=== PATIENT | male | born 1965 | race Hispanic/Latino ===

== ENCOUNTER 2018-06-26 21:34 | Emergency (ER) | payer OTHER ==
[2018-06-26] MEDS ORDERED: NACL 0.9% 1000 ML 2,000 ML IV ONE (21:44)
[2018-06-26] MEDS ORDERED: ATIVAN IM PRN (21:44)
[2018-06-26 22:39] LABS: Hematocrit 40.9 % (35.5-45.6); Hemoglobin 14.2 gm/dl (11.8-15.2); Mean Corpuscular HGB Conc 35 % (32-34); Mean Corpuscular Volume 99 fl (84-94); Platelet Count 183 K/mm3 (140-440); Red Blood Count 4.15 M/mm3 (3.65-5.03); Red Cell Distribution Width 13.8 % (13.2-15.2)
[2018-06-26 23:03] LABS: Alanine Aminotransferase 25 units/L (7-56); Albumin 4.4 g/dL (3.9-5); BUN/Creatinine Ratio 11; Blood Urea Nitrogen 9 mg/dL (9-20); Calcium 8.8 mg/dL (8.4-10.2); Hemolysis Index 9
[2018-06-26] MEDS ORDERED: MAGNESIUM SULFATE 2GM/50ML 2 GM/50 ML BAG IV ONE (23:14)
--- NOTE | 2018-06-26 23:33 | Cat Scan Report ---
FINAL REPORT PROCEDURE: CT HEAD/BRAIN WO CON TECHNIQUE: Computerized tomography of the head was performed without contrast material. HISTORY: ams etoh cocaine od COMPARISON: No prior studies are available for comparison. FINDINGS: Skull and scalp: Normal. Paranasal sinuses: There is fluid in the right maxillary sinus.. Ventricles and subarachnoid spaces: There is mild central and cortical atrophy. There is no hydroceph alus or asymmetry.. Cerebrum: No evidence of hemorrhage, acute infarction or mass . Cerebellum and brainstem: No evidence of hemorrhage, acute infarction or mass. Vasculature: Normal. Comments: None. IMPRESSION: There is no acute intracranial abnormality.
--- NOTE | 2018-06-26 23:45 | Emergency Department Report ---
ED General Adult HPI - General Chief complaint: Overdose Stated complaint: OVERDOSE COCAINE Time Seen by Provider: 06/26/18 21:39 Source: patient, EMS (EMS documentation as reviewed), RN notes reviewed Mode of arrival: Stretcher Limitations: Other (intoxication) - History of Present Illness Initial comments: This is a 52-year-old gentleman who was brought to the hospital by EMS for intoxication. The patient apparently reported no past medical history with the exception of penicillin allergy, and contacted 911 after using cocaine for the first time. The patient also consumed alcohol. The patient indicates that he was recreationally consuming these substances. The patient felt like his heart was racing, and felt uncomfortable with his polysubstance intoxication. The patient is concerned about his well-being. The patient is too intoxicated and anxious at this point time to describe exacerbating or relieving factors, radiation, or qualitative nature of his symptoms. There is no indication of trauma on his external physical exam, or from the EMS documentation. After a brief period of observation in the emergency room, patient felt improved, and was noted to be speaking to local police officers about his cocaine ingestion. -: This evening Severity scale (0 -10): 0 Quality: other Consistency: other Improves with: other Worsens with: other Associated Symptoms: weakness - Related Data Allergies Allergy/AdvReac Type Severity Reaction Status Date / Time No Known Allergies Allergy Unverified 06/26/18 22:53 ED Review of Systems ROS: Stated complaint: OVERDOSE COCAINE Other details as noted in HPI Comment: Unobtainable due to pts medical conditions Constitutional: malaise Cardiovascular: palpitations Gastrointestinal: denies: vomiting Neurological: weakness Psychiatric: anxiety. denies: homicidal thoughts, suicidal thoughts ED Past Medical Hx - Past Medical History Previous Medical History?: No - Surgical History Past Surgical History?: No - Social History Smoking Status: Current Every Day Smoker Substance Use Type: Cocaine ED Physical Exam - General Limitations: Other (intoxication) General appearance: alert, appears intoxicated, anxious, in distress - Head Head exam: Present: atraumatic, normocephalic - Eye Eye exam: Present: normal appearance, PERRL (pupils dilated), EOMI - ENT ENT exam: Present: normal exam, normal orophraynx, mucous membranes moist, normal external ear exam - Neck Neck exam: Present: normal inspection, full ROM. Absent: tenderness, meningismus - Respiratory Respiratory exam: Present: normal lung sounds bilaterally. Absent: respiratory distress - Cardiovascular Cardiovascular Exam: Present: normal rhythm, tachycardia, normal heart sounds. Absent: systolic murmur, diastolic murmur, rubs, gallop - GI/Abdominal GI/Abdominal exam: Present: soft. Absent: distended, tenderness, guarding, rebound, rigid, pulsatile mass - Rectal Rectal exam: Present: deferred - Extremities Exam Extremities exam: Present: normal inspection, full ROM, other (2+ pulses noted in the bilateral upper, lower extremities. Compartments soft. No long bony tenderness. The pelvis is stable.). Absent: pedal edema, joint swelling, calf tenderness - Back Exam Back exam: Present: normal inspection, full ROM. Absent: tenderness, CVA tenderness (R), paraspinal tenderness, vertebral tenderness - Neurological Exam Neurological exam: Present: alert (alert to name. Follows commands.), other (Extraocular movements intact. Tongue midline. No facial droop. Facial sensation intact to light touch in the V1, V2, V3 distribution bilaterally. 5 and 5 strength in 4 extremities.. Sensation is intact to light touch in 4 extremities.). Absent: motor sensory deficit - Psychiatric Psychiatric exam: Present: agitated, anxious - Skin Skin exam: Present: warm, dry, intact, normal color. Absent: rash ED Course Vital Signs 06/26/18 06/26/18 06/26/18 21:42 21:44 21:45 Temperature 97.8 F Pulse Rate 108 H Respiratory 20 Rate Blood Pressure 130/95 130/95 O2 Sat by Pulse 100 99 Oximetry 06/26/18 06/26/18 06/26/18 21:49 22:00 22:22 Temperature Pulse Rate 108 H 102 H Respiratory 20 20 18 Rate Blood Pressure 133/88 130/95 O2 Sat by Pulse 99 98 98 Oximetry 06/26/18 06/26/18 06/26/18 22:30 22:45 22:54 Temperature Pulse Rate 97 H 98 H 108 H Respiratory 22 22 24 Rate Blood Pressure 133/88 131/89 133/88 O2 Sat by Pulse 98 99 99 Oximetry 06/26/18 06/26/18 06/26/18 23:00 23:15 23:30 Temperature Pulse Rate 101 H 105 H 105 H Respiratory 21 20 15 Rate Blood Pressure 132/93 132/91 131/92 O2 Sat by Pulse 100 99 97 Oximetry 06/26/18 06/27/18 06/27/18 23:45 00:00 00:15 Temperature Pulse Rate 98 H Respiratory 16 Rate Blood Pressure 121/90 127/87 116/75 O2 Sat by Pulse 98 97 Oximetry 06/27/18 06/27/18 06/27/18 00:30 00:45 01:16 Temperature Pulse Rate Respiratory Rate Blood Pressure 115/77 113/73 113/73 O2 Sat by Pulse 98 Oximetry 06/27/18 01:31 Temperature Pulse Rate Respiratory Rate Blood Pressure 134/93 O2 Sat by Pulse Oximetry - Reevaluation(s) Reevaluation #1: 06/26/18 23:43 Differential diagnosis, including but not limited to: Cocaine intoxication, alcohol intoxication, dehydration Assessment and plan: 52-year-old gentleman, with no documented trauma, no physical evidence of trauma, with no indication of homicidality or suicidality, after presumed recreational ingestion of cocaine and alcohol. Physical exam significant for tachycardia, and pressured speech. The patient does not meet 1013 criteria. He is placed on 12/29/2012 for intoxication. IV fluids, as needed Ativan ordered. We will await clinical sobriety and then discharge the patient once sober. Reevaluation #2: 06/26/18 23:45 Patient found to be hypomagnesemic, we will replete his magnesium. Reevaluation #3: 06/27/18 05:28 The patient has been observed in the emergency room for approximately 8 hours. The patient's 1013 will be discontinued. The patient is clinically sober at this time. The patient is alert and oriented 3, exhibits decision-making capacity, and walks with a steady gait. The patient is counseled to refrain from cocaine and alcohol consumption in the future. ED Medical Decision Making - Lab Data Result diagrams: 06/26/18 22:01 06/26/18 22:01 Vital Signs 06/26/18 06/26/18 06/26/18 21:42 21:44 21:45 Temperature 97.8 F Pulse Rate 108 H Respiratory 20 Rate Blood Pressure 130/95 130/95 O2 Sat by Pulse 100 99 Oximetry 06/26/18 06/26/18 06/26/18 21:49 22:00 22:22 Temperature Pulse Rate 108 H 102 H Respiratory 20 20 18 Rate Blood Pressure 133/88 130/95 O2 Sat by Pulse 99 98 98 Oximetry 06/26/18 06/26/18 22:30 22:45 Temperature Pulse Rate 97 H 98 H Respiratory 22 22 Rate Blood Pressure 133/88 131/89 O2 Sat by Pulse 98 99 Oximetry Lab Results 06/26/18 06/26/18 06/26/18 Range/Units 22:01 22:01 22:01 WBC 6.1 (4.5-11.0) K/mm3 RBC 4.15 (3.65-5.03) M/mm3 Hgb 14.2 (11.8-15.2) gm/dl Hct 40.9 (35.5-45.6) % MCV 99 H (84-94) fl MCH 34 H (28-32) pg MCHC 35 H (32-34) % RDW 13.8 (13.2-15.2) % Plt Count 183 (140-440) K/mm3 Sodium 143 (137-145) mmol/L Potassium 4.0 (3.6-5.0) mmol/L Chloride 103.9 (98-107) mmol/L Carbon Dioxide 25 (22-30) mmol/L Anion Gap 18 mmol/L BUN 9 (9-20) mg/dL Creatinine 0.8 (0.8-1.5) mg/dL Estimated GFR > 60 ml/min BUN/Creatinine Ratio 11 % Glucose 91 (75-100) mg/dL Calcium 8.8 (8.4-10.2) mg/dL Magnesium 1.60 L (1.7-2.3) mg/dL Total Bilirubin 0.30 (0.1-1.2) mg/dL AST 62 H (5-40) units/L ALT 25 (7-56) units/L Alkaline Phosphatase 111 (35-129) units/L Total Creatine Kinase 115 (55-170) units/L Total Protein 7.3 (6.3-8.2) g/dL Albumin 4.4 (3.9-5) g/dL Albumin/Globulin Ratio 1.5 % Salicylates < 0.3 L (2.8-20.0) mg/dL Acetaminophen (10.0-30.0) ug/mL Plasma/Serum Alcohol (0-0.07) % 06/26/18 06/26/18 Range/Units 22:01 22:01 WBC (4.5-11.0) K/mm3 RBC (3.65-5.03) M/mm3 Hgb (11.8-15.2) gm/dl Hct (35.5-45.6) % MCV (84-94) fl MCH (28-32) pg MCHC (32-34) % RDW (13.2-15.2) % Plt Count (140-440) K/mm3 Sodium (137-145) mmol/L Potassium (3.6-5.0) mmol/L Chloride (98-107) mmol/L Carbon Dioxide (22-30) mmol/L Anion Gap mmol/L BUN (9-20) mg/dL Creatinine (0.8-1.5) mg/dL Estimated GFR ml/min BUN/Creatinine Ratio % Glucose (75-100) mg/dL Calcium (8.4-10.2) mg/dL Magnesium (1.7-2.3) mg/dL Total Bilirubin (0.1-1.2) mg/dL AST (5-40) units/L ALT (7-56) units/L Alkaline Phosphatase (35-129) units/L Total Creatine Kinase (55-170) units/L Total Protein (6.3-8.2) g/dL Albumin (3.9-5) g/dL Albumin/Globulin Ratio % Salicylates (2.8-20.0) mg/dL Acetaminophen < 5.0 L (10.0-30.0) ug/mL Plasma/Serum Alcohol 0.30 H (0-0.07) % - EKG Data -: EKG Interpreted by [facility] EKG shows normal: sinus rhythm Rate: normal - EKG Data When compared to previous EKG there are: previous EKG unavailable 06/26/18 23:44 Sinus, 94 bpm, left axis deviation, left anterior fascicular block, left v entricular hypertrophy, QTC prolonged, abnormal EKG, not consistent with ST elevation myocardial infarction. There is no EKG available for comparison at this time. - Radiology Data Radiology results: report reviewed, image reviewed Noncontrast CT scan of the brain is negative for acute disease Critical care attestation.: If time is entered above; I have spent that time in minutes in the direct care of this critically ill patient, excluding procedure time. ED Disposition Clinical Impression: Alcohol intoxication, History of cocaine use Disposition: DC-01 TO HOME OR SELFCARE Is pt being admited?: No Does the pt Need Aspirin: No Condition: Good Instructions: Cocaine Abuse (ED), Abuse of Alcohol (ED) Additional Instructions: Please refrain from using cocaine in the future. Complications from cocaine use include heart attack, stroke, disability, paralysis, loss of quality of life. Please make certain to decrease or minimize alcohol consumption in the future. Long-term complications of alcohol consumption include disability, liver failure, addiction, loss of quality of life. Follow-up with the primary care doctor within the next 3-4 weeks. Return to the emergency room right away with new, worsened or different symptoms. Referrals: [facility] [Other] - 3-5 Days [facility] [Provider Group] - 3-5 Days
[2018-06-27 05:29] VITALS: BP 127/86
== END 2018-06-27 06:28 | disposition home or self-care (01) ==
LOC: ED 21:34
DX: F14.120 Cocaine abuse with intoxication, uncomplicated (principal); F41.9 Anxiety disorder, unspecified; F17.200 Nicotine dependence, unspecified, uncomplicated
CPT/HCPCS: 36415; 70450; 80053; 82550; 83735; 85027; 93005; 93010; 96365; 96372; 99284; G0480; J2060; J3475; J7030; 80320

== ENCOUNTER 2018-07-03 20:37 | Inpatient (IN) | payer SELFPAY ==
[2018-07-03] MEDS ORDERED: NITRO-BID 2% TP ONE (21:13)
[2018-07-03] MEDS ORDERED: ASPIRIN PO ONE (21:13)
--- NOTE | 2018-07-03 21:15 | Emergency Department Report ---
HPI - General Chief Complaint: Psych Time Seen by Provider: 07/03/18 20:48 - HPI HPI: Room 7 The patient is a 52-year-old male presenting with chief complaint of palpitations and chest pain. The patient states this evening he was talking to someone and he met at a bar when they decided to go outside and smoke. The patient states he thought they were smoking marijuana but he believes his cigarette head marijuana mixed with another substance possibly methamphetamine or cocaine. The patient states after smoking immediately felt his heart rate increased dramatically associated with chest pain and shortness of breath. Patient states he went to the bathroom and eventually the heart rate had normalized. The patient states he felt okay going to get some food from [employer] when again his heart rate increased dramatically. The patient states this resolved when the heart rate increased to third time he called EMS. Patient states he currently has chest pain and gives it a score of 6/10. Patient admits to diaphoresis but denies nausea/vomiting. Patient states he's had multiple stress tests but has never had a cardiac catheterization Location: Chest Duration: [See above] Quality: Pain, palpitations Severity: 6/10 Modifying factors: [see above] Context: [see above] Mode of transportation: [not driving] ED Past Medical Hx - Past Medical History Previous Medical History?: No Hx COPD: Yes (no home O2) - Surgical History Past Surgical History?: Yes Additional Surgical History: back surgery - Family History Family history: no significant - Social History Smoking Status: Current Every Day Smoker (1 pack per day) Substance Use Type: Alcohol (moderate), Marijuana ED Review of Systems ROS: Stated complaint: ACCELERATED HEART RATE Other details as noted in HPI Constitutional: diaphoresis Eyes: denies: eye pain ENT: denies: throat pain Respiratory: shortness of breath Cardiovascular: chest pain, palpitations Endocrine: no symptoms reported Gastrointestinal: denies: nausea, vomiting Genitourinary: denies: dysuria Musculoskeletal: denies: back pain Neurological: denies: headache Physical Exam - Physical Exam Physical Exam: GENERAL: The patient is well-developed well-nourished male lying on stretcher not appearing to be in acute distress. [] HEENT: Normocephalic. Atraumatic. Extraocular motions are intact. Patient has moist mucous membranes. NECK: Supple. Trachea midline CHEST/LUNGS: Clear to auscultation. There is no respiratory distress noted. HEART/CARDIOVASCULAR: Regular. There is no tachycardia. There is no gallop rub or murmur. ABDOMEN: Abdomen is soft, nontender. Patient has normal bowel sounds. There is no abdominal distention. SKIN: There is no rash. There is no edema. There is no diaphoresis. NEURO: The patient is awake, alert, and oriented. The patient is cooperative. The patient has normal speech MUSCULOSKELETAL: There is no evidence of acute injury. ED Medical Decision Making - Lab Data Result diagrams: 07/03/18 21:15 07/03/18 21:15 Laboratory Tests 07/03/18 07/03/18 07/03/18 21:15 21:15 21:15 WBC 5.7 RBC 3.61 L Hgb 12.4 Hct 35.3 L MCV 98 H MCH 34 H MCHC 35 H RDW 13.7 Plt Count 149 Lymph % (Auto) 45.2 H [place] % (Auto) 8.3 H Eos % (Auto) 1.5 Baso % (Auto) 1.2 Lymph # 2.6 [place] # 0.5 Eos # 0.1 Baso # 0.1 Seg Neutrophils % 43.8 Seg Neutrophils # 2.5 PT 12.7 INR 0.90 APTT 27.8 Sodium 146 H Potassium 4.2 Chloride 104.6 Carbon Dioxide 24 Anion Gap 22 BUN 9 Creatinine 0.7 L Estimated GFR > 60 BUN/Creatinine Ratio 13 Glucose 94 Calcium 8.4 Magnesium Total Bilirubin 0.30 AST 54 H ALT 25 Alkaline Phosphatase 104 Total Creatine Kinase 241 H CK-MB (CK-2) 2.7 CK-MB (CK-2) Rel Index 1.1 Troponin T NT-Pro-B Natriuret Pep Total Protein 6.3 Albumin 4.2 Albumin/Globulin Ratio 2.0 07/03/18 07/03/18 21:15 21:15 WBC RBC Hgb Hct MCV MCH MCHC RDW Plt Count Lymph % (Auto) [place] % (Auto) Eos % (Auto) Baso % (Auto) Lymph # [place] # Eos # Baso # Seg Neutrophils % Seg Neutrophils # PT INR APTT Sodium Potassium Chloride Carbon Dioxide Anion Gap BUN Creatinine Estimated GFR BUN/Creatinine Ratio Glucose Calcium Magnesium 1.80 Total Bilirubin AST ALT Alkaline Phosphatase Total Creatine Kinase CK-MB (CK-2) CK-MB (CK-2) Rel Index Troponin T < 0.010 NT-Pro-B Natriuret Pep 675.2 Total Protein Albumin Albumin/Globulin Ratio Laboratory Tests 07/03/18 07/03/18 07/03/18 21:15 21:15 21:15 WBC 5.7 RBC 3.61 L Hgb 12.4 Hct 35.3 L MCV 98 H MCH 34 H MCHC 35 H RDW 13.7 Plt Count 149 Lymph % (Auto) 45.2 H [place] % (Auto) 8.3 H Eos % (Auto) 1.5 Baso % (Auto) 1.2 Lymph # 2.6 [place] # 0.5 Eos # 0.1 Baso # 0.1 Seg Neutrophils % 43.8 Seg Neutrophils # 2.5 PT 12.7 INR 0.90 APTT 27.8 Sodium 146 H Potassium 4.2 Chloride 104.6 Carbon Dioxide 24 Anion Gap 22 BUN 9 Creatinine 0.7 L Estimated GFR > 60 BUN/Creatinine Ratio 13 Glucose 94 Calcium 8.4 Magnesium Total Bilirubin 0.30 AST 54 H ALT 25 Alkaline Phosphatase 104 Total Creatine Kinase 241 H CK-MB (CK-2) 2.7 CK-MB (CK-2) Rel Index 1.1 Troponin T NT-Pro-B Natriuret Pep Total Protein 6.3 Albumin 4.2 Albumin/Globulin Ratio 2.0 TSH Free T4 Plasma/Serum Alcohol 07/03/18 07/03/18 07/03/18 21:15 21:15 21:15 WBC RBC Hgb Hct MCV MCH MCHC RDW Plt Count Lymph % (Auto) [place] % (Auto) Eos % (Auto) Baso % (Auto) Lymph # [place] # Eos # Baso # Seg Neutrophils % Seg Neutrophils # PT INR APTT Sodium Potassium Chloride Carbon Dioxide Anion Gap BUN Creatinine Estimated GFR BUN/Creatinine Ratio Glucose Calcium Magnesium 1.80 Total Bilirubin AST ALT Alkaline Phosphatase Total Creatine Kinase CK-MB (CK-2) CK-MB (CK-2) Rel Index Troponin T < 0.010 NT-Pro-B Natriuret Pep 675.2 Total Protein Albumin Albumin/Globulin Ratio TSH 0.865 Free T4 0.94 Plasma/Serum Alcohol 07/03/18 21:15 WBC RBC Hgb Hct MCV MCH MCHC RDW Plt Count Lymph % (Auto) [place] % (Auto) Eos % (Auto) Baso % (Auto) Lymph # [place] # Eos # Baso # Seg Neutrophils % Seg Neutrophils # PT INR APTT Sodium Potassium Chloride Carbon Dioxide Anion Gap BUN Creatinine Estimated GFR BUN/Creatinine Ratio Glucose Calcium Magnesium Total Bilirubin AST ALT Alkaline Phosphatase Total Creatine Kinase CK-MB (CK-2) CK-MB (CK-2) Rel Index Troponin T NT-Pro-B Natriuret Pep Total Protein Albumin Albumin/Globulin Ratio TSH Free T4 Plasma/Serum Alcohol 0.34 H - EKG Data -: EKG Interpreted by Me EKG shows normal: sinus rhythm Rate: normal - EKG Data When compared to previous EKG there are: changes noted Interpretation: nonspecific ST-T wave aaron (new T-wave inversions in leads and leads V5, V6 when compared to previous EKG dated 06/26/2018) - Radiology Data Radiology results: image reviewed (chest x-ray) interpreted by me: Chest x-ray-no focal infiltrates, no pneumothorax - Differential Diagnosis ACS, stimulant ingestion, pericarditis, GERD Critical care attestation.: If time is entered above; I have spent that time in minutes in the direct care of this critically ill patient, excluding procedure time. ED Disposition Clinical Impression: History of cocaine use, Alcohol intoxication, Chest pain, T wave inversion in EKG Disposition: DC-09 OP ADMIT IP TO THIS HOSP Is pt being admited?: Yes Does the pt Need Aspirin: Yes Condition: Fair Instructions: Chest Pain (ED) Referrals: SARITA HENDERSON MD [Primary Care Provider] - 3-5 Days Time of Disposition: 22:22 (hospitalist paged (Dr Parrish))
[2018-07-03 21:28] LABS: Basophils # (Auto) 0.1 K/mm3 (0.0-0.1); Basophils % (Auto) 1.2 % (0.0-1.8); Eosinophils # (Auto) 0.1 K/mm3 (0.0-0.4); Eosinophils % (Auto) 1.5 % (0.0-4.3); Hematocrit 35.3 % (35.5-45.6); Hemoglobin 12.4 gm/dl (11.8-15.2); Lymphocytes # (Auto) 2.6 K/mm3 (1.2-5.4); Lymphocytes % (Auto) 45.2 % (13.4-35.0); Mean Corpuscular HGB Conc 35 % (32-34); Mean Corpuscular Volume 98 fl (84-94); Monocytes # (Auto) 0.5 K/mm3 (0.0-0.8); Monocytes % (Auto) 8.3 % (0.0-7.3); Platelet Count 149 K/mm3 (140-440); Red Blood Count 3.61 M/mm3 (3.65-5.03); Red Cell Distribution Width 13.7 % (13.2-15.2)
[2018-07-03 21:39] LABS: INR 0.9 (0.87-1.13)
[2018-07-03 21:40] LABS: Partial Thromboplastin Time 27.8 Sec. (24.2-36.6)
[2018-07-03 22:14] LABS: Creatine Kinase MB 2.7 ng/mL (0.0-4.0)
[2018-07-03 22:16] LABS: Alanine Aminotransferase 25 units/L (7-56); Albumin 4.2 g/dL (3.9-5); BUN/Creatinine Ratio 13; Blood Urea Nitrogen 9 mg/dL (9-20); Calcium 8.4 mg/dL (8.4-10.2); Hemolysis Index 14
[2018-07-03 22:19] LABS: Free T4 (Free Thyroxine) 0.94 ng/dL (0.76-1.46)
[2018-07-03] MEDS ORDERED: FOLVITE 1 MG, INFUVITE 10 ML, MAGNESIUM SULFATE 2 GM in NACL 0.9% 1000 ML 1,000 ML IV ONE (22:23)
--- NOTE | 2018-07-03 22:33 | XRay Report ---
FINAL REPORT PROCEDURE: Chest. TECHNIQUE: Portable AP view. HISTORY: Chest pain. COMPARISON: No prior studies are available for comparison. FINDINGS: The heart and mediastinum appear normal. The lungs are clear and well expanded. There are no pleural effusions. The soft tissues and regional skeleton are unremarkable. IMPRESSION: Negative portable chest.
[2018-07-03 22:45] LABS: Amphetamine Screen,Urine PRESUMPTIVE NEGATIVE; Benzodiazepines Screen,Urine PRESUMPTIVE NEGATIVE; Cannabinoid Screen,Urine PRESUMPTIVE NEGATIVE; Cocaine Screen,Urine PRESUMPTIVE NEGATIVE; Methadone Screen,Urine PRESUMPTIVE NEGATIVE; Opiate Screen,Urine PRESUMPTIVE NEGATIVE
[2018-07-03] MEDS ORDERED: VITAMIN B-1 PO ONE (23:00)
[2018-07-03] MEDS ORDERED: NITROSTAT SL PRN (23:10)
[2018-07-03] MEDS ORDERED: TYLENOL PO PRN (23:11)
[2018-07-03] MEDS ORDERED: MORPHINE IV PRN (23:11)
[2018-07-03] MEDS ORDERED: ZOFRAN IV PRN (23:13)
[2018-07-03] MEDS ORDERED: ATIVAN IV PRN (23:13)
[2018-07-03] MEDS: NITRO-BID 2% TP SCH (23:27)
[2018-07-04] MEDS: NITRO-BID 2% TP SCH ×4 (06:12→17:12)
--- NOTE | 2018-07-04 06:53 | History and Physical Report ---
CHIEF COMPLAINT: Chest pain. HISTORY OF PRESENTING ILLNESS: The patient is a 52-year-old male who started complaining about chest pain and palpitation and said that he went to a bar this evening and decided to go outside and smoke with a lady. He was not sure what the lady gave him, but said that they were smoking marijuana and the patient said he suspected that his marijuana was mixed with another substance which he said that might possibly be methamphetamine or cocaine and said after that, he started feeling his heart beating fast and then he developed chest pain with shortness of breath and then eventually he went to the bathroom and the heart rate normalized and then he said that when he went to [employer] to get some food, his heart rate started beating fast again and resolved later on only to start beating fast again at that time he called EMS and he was brought to the Emergency Room. There is history of associated diaphoresis, but no nausea, no vomiting. PAST MEDICAL HISTORY: Pertinent for COPD. PAST SURGICAL HISTORY: Pertinent for back surgery. FAMILY HISTORY: Noncontributory. SOCIAL HISTORY: The patient smokes cigarettes and drinks alcohol, uses illicit drug. MEDICATIONS: The patient's home medications are not known at this time. ALLERGIES: There are no known drug allergies. REVIEW OF SYSTEMS: CONSTITUTIONAL: There is no fever, no chills. Diaphoresis is present. HEENT: There is no headache or sore throat. CARDIOVASCULAR SYSTEM: Chest pain is present, palpitations present. No orthopnea. RESPIRATORY SYSTEM: There is shortness of breath, but no cough. GASTROINTESTINAL SYSTEM: There is no nausea, no vomiting. No abdominal pain, diarrhea, or constipation. NEUROLOGICAL SYSTEM: There is no numbness, no dizziness, no altered mental status. MUSCULOSKELETAL SYSTEM: There is no joint pain or swelling. DERMATOLOGICAL SYSTEM: There is no skin rash or itching. GENITOURINARY SYSTEM: There is no dysuria, hematuria, or flank pain. Rest of system review is normal. PHYSICAL EXAMINATION: GENERAL: At the time of exam, the patient was found to be lethargic, but able to communicate and not in acute distress. VITAL SIGNS: Show temperature of 97.9 degrees Fahrenheit, pulse of 83, respirations 18, blood pressure 123/87, O2 sat of 100% on room air. HEENT: Shows pupils to be equal, round, reactive to light and accommodation. Extraocular muscles are intact. NECK: Supple with no JVD or carotid bruit. CARDIOVASCULAR SYSTEM: Shows normal first and second heart sounds with no gallops or murmurs. RESPIRATORY SYSTEM: Shows good air entry on both sides of the lung with no abnormal breath sounds. GASTROINTESTINAL SYSTEM: Shows abdomen to be full, soft, nontender with no organomegaly or rigidity. NEUROLOGICAL: Shows no focal deficit. MUSCULOSKELETAL SYSTEM: Shows no joint swelling or tenderness. DERMATOLOGICAL SYSTEM: Shows no skin rash. GENITOURINARY SYSTEM: Showing no costovertebral angle tenderness. PERTINENT LABORATORY AND IMAGING STUDIES: The patient had chest x-ray done that came back showing no acute cardiopulmonary lesion. The patient's lab results show CBC with normal white count, normal hemoglobin, and slightly low hematocrit of 35.3 with CBC differential showing elevated lymphocyte count of 45.2% with elevated monocyte count of 8.3%. Rest of CBC was unremarkable. Coagulation studies came back unremarkable. The patient's chemistry shows slightly elevated sodium level of 146 with rest of chemistry showing elevated AST of 54 with normal ALT consistent with alcohol consumption. The patient's cardiac enzymes only showed elevated total CPK of 241 with normal CK, MB, and normal CK-MB percentage index and normal troponin level. The patient's urine drug screen came back unremarkable. Alcohol level is high with a value of 0.34. DIAGNOSES: 1. Chest pain. 2. Alcohol abuse. PLAN OF CARE: 1. The patient will be admitted to telemetry. 2. The patient will have cardiac enzymes involving troponin, total CK and CK-MB checked serially every 6 hours x 2 more levels. 3. The patient will be n.p.o. for Lexiscan stress test this morning. 4. The patient will be on aspirin 325 mg by mouth daily and will be on Tylenol 650 mg by mouth every 4 hours for fever and headache. 5. The patient will be on IV lorazepam 1 mg every 4 hours for anxiety and agitation. 6. The patient will be on IV morphine 2 mg every 3 hours as needed for chest pain and will be on IV Zofran 4 mg every 8 hours for nausea and vomiting. 7. The patient will be on nitro paste one inch to anterior chest wall q.i.d. and will be also on sublingual nitroglycerin 0.4 mg every 5 minutes as needed for breakthrough chest pain. 8. The patient will be on IV banana bag made up of thiamine and folic acid, magnesium sulfate, and multivitamins, all mixed in 1 L of normal saline and run at 250 mL an hour and given 1 time daily. 9. The patient will be on oxygen by nasal cannula 2 L/min. JOB# [id number] OCN/NTS MTDD
[2018-07-04] MEDS ORDERED: LEXISCAN IV ONE (08:03)
[2018-07-04] MEDS: VITAMIN B-1 PO SCH (10:54)
[2018-07-04] MEDS: ASPIRIN PO SCH (10:54)
[2018-07-04] MEDS: HEPARIN SUB-Q SCH ×3 (11:00→21:07)
[2018-07-04 11:20] LABS: BUN/Creatinine Ratio 13; Blood Urea Nitrogen 8 mg/dL (9-20); Hemolysis Index 6
[2018-07-04] MEDS: LIBRIUM PO SCH ×2 (14:11→20:49)
[2018-07-04] MEDS: ZESTRIL PO SCH (14:12)
[2018-07-04] MEDS: COREG PO SCH ×3 (14:14→21:07)
--- NOTE | 2018-07-04 15:20 | Progress Note ---
Assessment and Plan Assessment and plan: Chest pain, rule out ACS -serial troponin levels negative -NST negative for acute ischemia with EF of 30% History of alcohol abuse with intoxication on admission -On counseling the patient, he refuses to stop drinking because according to him, he has been drinking since he was 16 years old -On alcohol withdrawal prophylaxis New cardiomyopathy likely alcoholic with EF of 30% -Patient started on beta ketan and ANDREINA inhibitor -Echocardiogram pending -Cardiology consulted COPD -No acute exacerbation -PRN magali Disposition: We'll await cardiology review before discharge planning History Interval history: Patient reports feeling tired after the stress test. He denies current chest pain. Hospitalist Physical - Constitutional Vitals: Temp Pulse Resp BP Pulse Ox 98.3 F 94 H 18 134/87 97 07/04/18 04:41 07/04/18 12:15 07/04/18 04:41 07/04/18 12:15 07/04/18 12:15 General appearance: Present: no acute distress - EENT Eyes: Present: PERRL, EOM intact ENT: hearing intact, clear oral mucosa - Neck Neck: Present: supple - Respiratory Respiratory effort: normal Respiratory: bilateral: CTA - Cardiovascular Rhythm: regular Heart Sounds: Present: S1 & S2 - Extremities Extremities: No edema - Abdominal General gastrointestinal: soft, non-tender, non-distended, normal bowel sounds - Neurologic Neurologic: CNII-XII intact Results - Labs CBC & Chem 7: 07/03/18 21:15 07/04/18 10:43 Labs: Laboratory Last Values WBC 5.7 K/mm3 (4.5-11.0) 07/03/18 21:15 RBC 3.61 M/mm3 (3.65-5.03) L 07/03/18 21:15 Hgb 12.4 gm/dl (11.8-15.2) 07/03/18 21:15 Hct 35.3 % (35.5-45.6) L 07/03/18 21:15 MCV 98 fl (84-94) H 07/03/18 21:15 MCH 34 pg (28-32) H 07/03/18 21:15 MCHC 35 % (32-34) H 07/03/18 21:15 RDW 13.7 % (13.2-15.2) 07/03/18 21:15 Plt Count 149 K/mm3 (140-440) 07/03/18 21:15 Lymph % (Auto) 45.2 % (13.4-35.0) H 07/03/18 21:15 [place] % (Auto) 8.3 % (0.0-7.3) H 07/03/18 21:15 Eos % (Auto) 1.5 % (0.0-4.3) 07/03/18 21:15 Baso % (Auto) 1.2 % (0.0-1.8) 07/03/18 21:15 Lymph # 2.6 K/mm3 (1.2-5.4) 07/03/18 21:15 [place] # 0.5 K/mm3 (0.0-0.8) 07/03/18 21:15 Eos # 0.1 K/mm3 (0.0-0.4) 07/03/18 21:15 Baso # 0.1 K/mm3 (0.0-0.1) 07/03/18 21:15 Seg Neutrophils % 43.8 % (40.0-70.0) 07/03/18 21:15 Seg Neutrophils # 2.5 K/mm3 (1.8-7.7) 07/03/18 21:15 PT 12.7 Sec. (12.2-14.9) 07/03/18 21:15 INR 0.90 (0.87-1.13) 07/03/18 21:15 APTT 27.8 Sec. (24.2-36.6) 07/03/18 21:15 Sodium 143 mmol/L (137-145) 07/04/18 10:43 Potassium 4.1 mmol/L (3.6-5.0) 07/04/18 10:43 Chloride 106.4 mmol/L (98-107) 07/04/18 10:43 Carbon Dioxide 20 mmol/L (22-30) L 07/04/18 10:43 Anion Gap 21 mmol/L 07/04/18 10:43 BUN 8 mg/dL (9-20) L 07/04/18 10:43 Creatinine 0.6 mg/dL (0.8-1.5) L 07/04/18 10:43 Estimated GFR > 60 ml/min 07/04/18 10:43 BUN/Creatinine Ratio 13 % 02/23/19 10:43 Glucose 133 mg/dL (75-100) H 07/04/18 10:43 Calcium 8.0 mg/dL (8.4-10.2) L 07/04/18 10:43 Magnesium 1.80 mg/dL (1.7-2.3) 07/03/18 21:15 Total Bilirubin 0.30 mg/dL (0.1-1.2) 07/03/18 21:15 AST 54 units/L (5-40) H 07/03/18 21:15 ALT 25 units/L (7-56) 07/03/18 21:15 Alkaline Phosphatase 104 units/L (35-129) 07/03/18 21:15 Total Creatine Kinase 179 units/L (55-170) H 07/04/18 10:43 CK-MB (CK-2) 2.0 ng/mL (0.0-4.0) 07/04/18 10:43 CK-MB (CK-2) Rel Index 1.1 (0-4) 07/04/18 10:43 Troponin T < 0.010 ng/mL (0.00-0.029) 07/04/18 10:43 NT-Pro-B Natriuret Pep 675.2 pg/mL (0-900) 07/03/18 21:15 Total Protein 6.3 g/dL (6.3-8.2) 07/03/18 21:15 Albumin 4.2 g/dL (3.9-5) 07/03/18 21:15 Albumin/Globulin Ratio 2.0 % 07/03/18 21:15 TSH 0.865 mlU/mL (0.270-4.200) 07/03/18 21:15 Free T4 0.94 ng/dL (0.76-1.46) 07/03/18 21:15 Urine Opiates Screen Presumptive negative 07/03/18 22:02 Urine Methadone Screen Presumptive negative 07/03/18 22:02 Ur Barbiturates Screen Presumptive negative 07/03/18 22:02 Ur Phencyclidine Scrn Presumptive negative 07/03/18 22:02 Ur Amphetamines Screen Presumptive negative 07/03/18 22:02 U Benzodiazepines Scrn Presumptive negative 07/03/18 22:02 Urine Cocaine Screen Presumptive negative 07/03/18 22:02 U Marijuana (THC) Screen Presumptive negative 07/03/18 22:02 Drugs of Abuse Note Disclamer 07/03/18 22:02 Plasma/Serum Alcohol 0.34 % (0-0.07) H 07/03/18 21:15
[2018-07-04] MEDS ORDERED: PROVENTIL IH PRN (15:23)
[2018-07-04] MEDS: FOLVITE 1 MG, INFUVITE 10 ML, MAGNESIUM SULFATE 2 GM in NACL 0.9% 1000 ML 1,000 ML IV SCH (22:02)
--- NOTE | 2018-07-04 22:08 | Treadmill Report ---
NUCLEAR PERFUSION SCAN ROOM: #458 REFERRING PHYSICIAN: Dr. Parrish. PROTOCOL: The patient was brought to the stress lab in a postabsorptive state, given 10 mCi of technetium 99m at rest. The patient underwent rest imaging. The patient underwent Lexiscan stress test per standard protocol. At peak stress, the patient was given 26 mCi of technetium 99m. Shortly thereafter, the patient underwent stress imaging. Raw imaging reveals mild GI artifact, no significant motion artifact. SPECT images examined carefully in horizontal long axis, vertical long axis, and short axis views. There is no evidence of significant fixed or reversible perfusion defect suggestive of prior infarction or active ischemia. However, the LV chamber size is at least mildly dilated with severe global left ventricular hypokinesis with a calculated ejection fraction of 31%. CONCLUSIONS: 1. Normal myocardial perfusion scan without evidence of significant degree of ischemia or prior infarction. 2. Severe global left ventricular hypokinesis with a calculated ejection fraction of 31%. Suggest clinical correlation, may want to correlate with echocardiography. Consider Cardiology consultation. JOB# [id number] SBAnila/DEDE
[2018-07-05] MEDS: NITRO-BID 2% TP SCH ×4 (06:07→17:02)
[2018-07-05] MEDS: ASPIRIN PO SCH (09:37)
[2018-07-05] MEDS: COREG PO SCH (09:37)
[2018-07-05] MEDS: THERAGRAN Tab PO SCH (09:37)
[2018-07-05] MEDS: ZESTRIL PO SCH (09:37)
[2018-07-05] MEDS: LIBRIUM PO SCH ×3 (09:37→22:44)
[2018-07-05] MEDS: VITAMIN B-1 PO SCH (09:38)
[2018-07-05] MEDS: HEPARIN SUB-Q SCH ×2 (09:38→22:44)
[2018-07-05] MEDS ORDERED: AFLURIA QUAD 2018-2019 SYRINGE IM ONE (12:00)
--- NOTE | 2018-07-05 12:18 | Consultation ---
History of Present Illness Consult date: 07/05/18 Medications and Allergies Allergies Allergy/AdvReac Type Severity Reaction Status Date / Time No Known Allergies Allergy Unverified 06/26/18 22:53 Home Medications Medication Instructions Recorded Confirmed Last Taken Type No Known Home Medications [No 07/03/18 07/03/18 Unknown History Reported Home Medications] Active Meds: Active Medications Acetaminophen (Tylenol) 650 mg PO Q4H PRN PRN Reason: Headache Albuterol (Proventil) 2.5 mg IH Q4HRT PRN PRN Reason: Shortness Of Breath Aspirin (Aspirin) 325 mg PO QDAY [facility] Last Admin: 07/05/18 09:37 Dose: 325 mg Documented by: Chlordiazepoxide HCl (Librium) 25 mg PO TID [facility] Last Admin: 07/05/18 09:37 Dose: 25 mg Documented by: Heparin Sodium (Porcine) (Heparin) 5,000 unit SUB-Q Q12HR [facility] Last Admin: 07/05/18 09:38 Dose: 5,000 unit Documented by: Folic Acid 1 mg/ Multivitamins /Minerals 10 ml/ Magnesium Sulfate 2 gm/ Sodium Chloride 1,014.2 mls @ 250 mls/hr IV QDAY@2200 [facility] Last Admin: 07/04/18 22:02 Dose: 250 mls/hr Documented by: Lorazepam (Ativan) 1 mg IV Q4H PRN PRN Reason: Anxiety Morphine Sulfate (Morphine) 2 mg IV Q3H PRN PRN Reason: Pain, Moderate (4-6) Multivitamins (Theragran Tab) 1 each PO QDAY [facility] Last Admin: 07/05/18 09:37 Dose: 1 each Documented by: Nitroglycerin (Nitrostat) 0.4 mg SL .Q5MIN PRN PRN Reason: Chest Pain Nitroglycerin (Nitro-Bid 2%) 1 inch TP QIDNTG [facility]; Protocol Last Admin: 07/05/18 09:38 Dose: Not Given Documented by: Ondansetron HCl (Zofran) 4 mg IV Q8H PRN PRN Reason: Nausea And Vomiting Thiamine HCl (Vitamin B-1) 100 mg PO QDAY [facility] Last Admin: 07/05/18 09:38 Dose: 100 mg Documented by: Physical Examination Vital Signs Pulse Ox 98 07/03/18 19:48 Results 07/03/18 21:15 07/04/18 10:43 Assessment and Plan full consult dictated
--- NOTE | 2018-07-05 13:50 | Progress Note ---
Assessment and Plan Assessment and plan: Chest pain, rule out ACS -serial troponin levels negative -NST negative for acute ischemia with EF of 31% -Echo reported EF of 15-20% with diastolic dysfunction. Patent foramen ovale and moderate MR noted History of alcohol abuse with intoxication on admission -stable on alcohol withdrawal prophylaxis -Pt declined to stop drinking despite education New cardiomyopathy(systolic and diastolic dysfunction), with EF of 15-30% -likely 2/2 alcohol abuse -Patient did not tolerate beta ketan and ANDREINA inhibitor -Cardiology planning for left cardiac catheterization in am COPD -No acute exacerbation -DASH [place] Disposition: For discharge after cardiac cath and cleared by cardiology History Interval history: Patient reports feeling better today. He denies chest pain. Hospitalist Physical - Constitutional Vitals: Temp Pulse Resp BP Pulse Ox 98.5 F 60 18 112/75 100 07/05/18 11:58 07/05/18 11:58 07/05/18 11:58 07/05/18 11:58 07/05/18 11:58 General appearance: Present: no acute distress - EENT Eyes: Present: PERRL, EOM intact ENT: hearing intact, clear oral mucosa - Neck Neck: Present: supple - Respiratory Respiratory effort: normal Respiratory: bilateral: CTA - Cardiovascular Rhythm: regular Heart Sounds: Present: S1 & S2 - Extremities Extremities: No edema - Abdominal General gastrointestinal: soft, non-tender, non-distended, normal bowel sounds - Neurologic Neurologic: CNII-XII intact Results - Labs CBC & Chem 7: 07/03/18 21:15 07/04/18 10:43 Labs: Laboratory Last Values WBC 5.7 K/mm3 (4.5-11.0) 07/03/18 21:15 RBC 3.61 M/mm3 (3.65-5.03) L 07/03/18 21:15 Hgb 12.4 gm/dl (11.8-15.2) 07/03/18 21:15 Hct 35.3 % (35.5-45.6) L 07/03/18 21:15 MCV 98 fl (84-94) H 07/03/18 21:15 MCH 34 pg (28-32) H 07/03/18 21:15 MCHC 35 % (32-34) H 07/03/18 21:15 RDW 13.7 % (13.2-15.2) 07/03/18 21:15 Plt Count 149 K/mm3 (140-440) 07/03/18 21:15 Lymph % (Auto) 45.2 % (13.4-35.0) H 07/03/18 21:15 [place] % (Auto) 8.3 % (0.0-7.3) H 07/03/18 21:15 Eos % (Auto) 1.5 % (0.0-4.3) 07/03/18 21:15 Baso % (Auto) 1.2 % (0.0-1.8) 07/03/18 21:15 Lymph # 2.6 K/mm3 (1.2-5.4) 07/03/18 21:15 [place] # 0.5 K/mm3 (0.0-0.8) 07/03/18 21:15 Eos # 0.1 K/mm3 (0.0-0.4) 07/03/18 21:15 Baso # 0.1 K/mm3 (0.0-0.1) 07/03/18 21:15 Seg Neutrophils % 43.8 % (40.0-70.0) 07/03/18 21:15 Seg Neutrophils # 2.5 K/mm3 (1.8-7.7) 07/03/18 21:15 PT 12.7 Sec. (12.2-14.9) 07/03/18 21:15 INR 0.90 (0.87-1.13) 07/03/18 21:15 APTT 27.8 Sec. (24.2-36.6) 07/03/18 21:15 Sodium 143 mmol/L (137-145) 07/04/18 10:43 Potassium 4.1 mmol/L (3.6-5.0) 07/04/18 10:43 Chloride 106.4 mmol/L (98-107) 07/04/18 10:43 Carbon Dioxide 20 mmol/L (22-30) L 07/04/18 10:43 Anion Gap 21 mmol/L 07/04/18 10:43 BUN 8 mg/dL (9-20) L 07/04/18 10:43 Creatinine 0.6 mg/dL (0.8-1.5) L 07/04/18 10:43 Estimated GFR > 60 ml/min 07/04/18 10:43 BUN/Creatinine Ratio 13 % 07/04/18 10:43 Glucose 133 mg/dL (75-100) H 07/04/18 10:43 Calcium 8.0 mg/dL (8.4-10.2) L 07/04/18 10:43 Magnesium 1.80 mg/dL (1.7-2.3) 07/03/18 21:15 Total Bilirubin 0.30 mg/dL (0.1-1.2) 07/03/18 21:15 AST 54 units/L (5-40) H 07/03/18 21:15 ALT 25 units/L (7-56) 07/03/18 21:15 Alkaline Phosphatase 104 units/L (35-129) 07/03/18 21:15 Total Creatine Kinase 179 units/L (55-170) H 07/04/18 10:43 CK-MB (CK-2) 2.0 ng/mL (0.0-4.0) 07/04/18 10:43 CK-MB (CK-2) Rel Index 1.1 (0-4) 07/04/18 10:43 Troponin T < 0.010 ng/mL (0.00-0.029) 07/04/18 10:43 NT-Pro-B Natriuret Pep 675.2 pg/mL (0-900) 07/03/18 21:15 Total Protein 6.3 g/dL (6.3-8.2) 07/03/18 21:15 Albumin 4.2 g/dL (3.9-5) 07/03/18 21:15 Albumin/Globulin Ratio 2.0 % 07/03/18 21:15 TSH 0.865 mlU/mL (0.270-4.200) 07/03/18 21:15 Free T4 0.94 ng/dL (0.76-1.46) 07/03/18 21:15 Urine Opiates Screen Presumptive negative 07/03/18 22:02 Urine Methadone Screen Presumptive negative 07/03/18 22:02 Ur Barbiturates Screen Presumptive negative 07/03/18 22:02 Ur Phencyclidine Scrn Presumptive negative 07/03/18 22:02 Ur Amphetamines Screen Presumptive negative 07/03/18 22:02 U Benzodiazepines Scrn Presumptive negative 07/03/18 22:02 Urine Cocaine Screen Presumptive negative 07/03/18 22:02 U Marijuana (THC) Screen Presumptive negative 07/03/18 22:02 Drugs of Abuse Note Disclamer 07/03/18 22:02 Plasma/Serum Alcohol 0.34 % (0-0.07) H 07/03/18 21:15
--- NOTE | 2018-07-05 16:38 | Consultation ---
CARDIOLOGY CONSULTATION REASON FOR CONSULTATION: Advice and opinion regarding cardiomyopathy and chest pain. HISTORY OF PRESENT ILLNESS: The patient is a pleasant 52-year-old gentleman with a history of COPD, chronic back pain, tobacco use, alcohol abuse, illicit drug use, presents here for cardiac evaluation. He was having chest pain, chest tightness. Apparently had marijuana, methamphetamine and cocaine. He is seen on telemetry, continued to have chest pain up to last night on and off. No syncope or presyncope. No abdominal pain, no fevers, chills, nausea or vomiting. He is a originally from [place] most recently he was in [place], [place]. FAMILY HISTORY: Noncontributory. MEDICAL HISTORY: As per HPI. PAST SURGICAL HISTORY: Back surgery. MEDICATIONS: Inpatient and outpatient medications reviewed. ALLERGIES: There are no known drug, food, or environmental allergies. REVIEW OF SYSTEMS: As per HPI. No rash, abdominal pain. No hematochezia, melena or hemoptysis. No falls, blurred vision or dizziness. PHYSICAL EXAMINATION: VITAL SIGNS: Tele reveals sinus rhythm in the 50s and 60s, blood pressure is borderline 90s to 100s. O2 sats 97% on room air. GENERAL: This is a middle-aged -[place] male in no apparent distress, oriented x 3. HEENT: Sclerae icteric. NECK: Supple, no masses, no JVD. CHEST: Clear to auscultation bilaterally. Good air movement. CARDIOVASCULAR: Regular rhythm, S1, S2. ABDOMEN: Soft, nontender, nondistended. Normoactive bowel sounds in 4 quadrants. No mass or bruits. EXTREMITIES: No cyanosis, clubbing or edema. Good peripheral pulses. SKIN: Warm, dry and intact. No rashes. LABORATORY DATA: ECG reveals normal sinus rhythm, left anterior fascicular block, nonspecific T-wave abnormalities. WBC is 5.7, hemoglobin is 12.4, hematocrit 35.3 and platelets 149. Creatinine 0.6, potassium 4.6. Troponin negative x 2. UDS is positive for alcohol. A nuclear stress test revealed EF of 31%. No evidence of ischemia. Echocardiogram revealed ejection fraction of 15-20%, dilated left ventricle. ASSESSMENT AND PLAN: The patient is a pleasant 52-year-old gentleman: 1. Presentation with chest pain with typical and atypical features. 2. Abnormal nuclear study and echocardiogram consistent with severe cardiomyopathy. 3. Polysubstance abuse. 4. Chronic obstructive pulmonary disease. At this point, the patient continues to have on and off chest pain. Given severe cardiomyopathy discussed the options with including medical management versus left heart catheterization. We will proceed with left heart catheterization in a.m. No known allergies and renal function is normal. Risks, benefits, alternatives discussed. We will proceed with same. Thank you for this consultation. JOB# [id number] SBAnila/NTS
[2018-07-05] MEDS: FOLVITE 1 MG, INFUVITE 10 ML, MAGNESIUM SULFATE 2 GM in NACL 0.9% 1000 ML 1,000 ML IV SCH (22:45)
[2018-07-06 05:40] LABS: INR 0.96 (0.87-1.13)
[2018-07-06] MEDS: NITRO-BID 2% TP SCH ×4 (06:31→19:22)
[2018-07-06] MEDS: ASPIRIN PO SCH ×2 (07:45→10:31)
[2018-07-06] MEDS ORDERED: ASPIRIN ONE (07:46)
[2018-07-06] MEDS ORDERED: NACL 0.9% 500 ML 500 ML IV SCH (08:00)
[2018-07-06] MEDS ORDERED: HEPARIN/NS 5000 UNIT/500ML(CATH LAB) 1,000 ML IR ONE (08:51)
[2018-07-06] MEDS ORDERED: XYLOCAINE 2% INFILTRATI ONE (08:52)
[2018-07-06] MEDS ORDERED: HEPARIN 10,000 UNITS/10 ML ONE (08:52)
[2018-07-06] MEDS ORDERED: CALAN ONE (08:52)
[2018-07-06] MEDS ORDERED: SUBLIMAZE ONE (08:52)
[2018-07-06] MEDS ORDERED: VERSED ONE (08:52)
[2018-07-06] MEDS: HEPARIN SUB-Q SCH ×2 (10:00→21:39)
--- NOTE | 2018-07-06 10:32 | Cardiac Catherization Report ---
CARDIAC CATHETERIZATION REPORT INDICATION FOR PROCEDURE: The patient is a 52-year-old white gentleman with a history of chronic obstructive pulmonary disease, chronic back pain, tobacco use, alcohol abuse, illicit, and also a history of drug use, presented for chest pain, chest tightness. He was having chest pain, subsequently underwent a stress nuclear imaging, which showed no evidence of ischemia. However, echocardiogram showed dilated left ventricle with ejection fraction of 15-20%. Because of his previous history of significantly abnormal LV dysfunction, the patient is scheduled for cardiac catheterization for definitive diagnosis and to rule out coronary artery disease as cause of his LV dysfunction. The patient denies any previous cardiac history being followed at [facility]. DESCRIPTION OF PROCEDURE: The patient was brought to the catheterization laboratory in a fasting condition. The patient was explained of the procedure, potential complications and alternatives of therapy available. The patient was evaluated for moderate sedation and he was felt to be appropriate candidate for moderate sedation. The patient was sedated with IV Versed and fentanyl. The right wrist area and forearm thoroughly cleansed with a chlorhexidine solution. Sterile drapes were applied. Local anesthesia was achieved using 2% Xylocaine. Right radial artery puncture was made using 21-gauge arterial puncture needle. Subsequently, 5-Salvadorean slender sheath was introduced. A 5-Salvadorean multipurpose catheter was used to obtain the angiograms of the right coronary artery. Subsequently, 5-Salvadorean Rumely catheter was used to obtain the angiograms of left coronary artery and left ventriculogram done in HAGER projection using hand injection. At the end of the procedure, catheter and sheath were removed. It is to be noted the patient received 3000 units of intravenous heparin and 5 mg of intra-arterial verapamil. In addition, the patient was sedated with IV Versed and fentanyl and then monitored with pulse oximetry, EKG monitoring and hemodynamic monitoring. His sedation started at 9:28 a.m. and monitoring of the sedation end at 9:47 a.m. The patient at the end of the procedure was communicative, talking normally and breathing normally. The patient was transferred to the room in stable condition. The following findings were noted. HEMODYNAMICS: 1. Opening aortic pressure 121/80, left ventricular pressure 121/30. No gradient across the aortic valve. Estimated ejection fraction 15-20%. 2. Left ventriculogram: Left ventriculogram done in HAGER projection using hand injection showed markedly dilated left ventricle with severe diffuse hypokinesis. Ejection fraction was felt to be 15-20%. Mitral regurgitation could not be evaluated because of limited amount of dye injected. 3. Right coronary artery dominant vessel arises normally from right coronary cusp. There is very mild smooth 10-20% mid lesion. Rest of the RCA dominant vessel without significant disease. 4. Left coronary artery shows very mild calcification proximally. Otherwise, only minimal irregularities noted. Collaterals none. FINAL IMPRESSION: 1. Markedly dilated left ventricle with severe diffuse hypokinesis, ejection fraction 15-20%. Mitral regurgitation could not be evaluated. 2. Very mild coronary artery disease. PLAN: At this time, considering his severe LV dysfunction would continue aggressive risk factor modification and medical therapy. The patient tolerated the procedure well. No untoward complications were noted. He is already receiving Coreg 12.5 mg b.i.d. in addition to lisinopril 10 mg. We will continue the same and needs close followup as an outpatient. Procedure was uncomplicated. Findings were explained to the patient. JOB# [id number] TWILA/DEDE
[2018-07-06] MEDS: THERAGRAN Tab PO SCH (10:38)
[2018-07-06] MEDS: VITAMIN B-1 PO SCH (10:38)
[2018-07-06] MEDS: LIBRIUM PO SCH ×3 (10:42→21:38)
--- NOTE | 2018-07-06 11:13 | Progress Note ---
Assessment and Plan S/p [facility] this AM which showed very mild CAD, EF 15-20%, markedly dilated LV with severe diffuse hypokinesis. Cont aggressive risk factor modification and medical therapy. Patient reportedly "did not tolerate beta ketan and ANDREINA inhibitor" per the chart. Will attempt to initiate low dose coreg, losartan and aldactone. Currently stable cardiac status. Pt may discharge home from cardiology standpoint following completion of post-cath order set. Recommend follow up in our office with Dr. Jet Dorantes within 3-5 days of hospital discharge ([phone]). The patient has been seen in conjunction with Dr. Monteiro who agrees with the assessment and plan of care. - Patient Problems (1) Chest pain Current Visit: Yes Status: Resolved (2) Nonischemic dilated cardiomyopathy Current Visit: Yes Status: Chronic (3) ETOH abuse Current Visit: Yes Status: Chronic (4) Tobacco use Current Visit: Yes Status: Chronic (5) Polysubstance abuse Current Visit: Yes Status: Chronic (6) COPD (chronic obstructive pulmonary disease) Current Visit: Yes Status: Chronic Subjective Date of service: 07/06/18 Principal diagnosis: cp Interval history: pt for [facility]. no current cardiac complaints. Objective Last Vital Signs Temp 98.0 F 07/06/18 10:54 Pulse 69 07/06/18 10:54 Resp 18 07/06/18 10:54 BP 110/69 07/06/18 10:54 Pulse Ox 100 07/06/18 10:54 - Physical Examination General: No Apparent Distress HEENT: Positive: PERRL, Normocephaly, Mucus Membranes Moist Neck: Positive: neck supple, trachea midline Cardiac: Positive: Reg Rate and Rhythm, S1/S2 Lungs: Positive: clear to auscultation Neuro: Positive: Grossly Intact Abdomen: Positive: Soft. Negative: Ascites Skin: Negative: Rash, Wound Musculoskeletal: No Pain Extremities: Absent: edema - Labs and Meds Coagulation 07/06/18 Range/Units 04:46 PT 13.4 (12.2-14.9) Sec. INR 0.96 (0.87-1.13) APTT 31.0 (24.2-36.6) Sec. - Imaging and Cardiology EKG: report reviewed, image reviewed Echo: report reviewed - Telemetry EKG Rhythm: Sinus Rhythm
--- NOTE | 2018-07-06 17:19 | Progress Note ---
Subjective Date of service: 07/06/18 Principal diagnosis: cp Interval history: Patient is alert not in any acute distress but complains of shortness of breath with minimal effort and feels very tired He states he gets out of breath just by moving and getting out of the bed He denies any chest pain, nausea or vomiting abdominal pain or paroxysmal nocturnal dyspnea Assessment and plan: Chest pain, rule out ACS -serial troponin levels negative -NST negative for acute ischemia with EF of 31% -Echo reported EF of 15-20% with diastolic dysfunction. Patent foramen ovale and moderate MR noted History of alcohol abuse with intoxication on admission -stable on alcohol withdrawal prophylaxis -Pt declined to stop drinking despite education New cardiomyopathy(systolic and diastolic dysfunction), with EF of 15-30% -likely 2/2 alcohol abuse -Patient did not tolerate beta ketan and ANDREINA inhibitor -Cardiology planning for left cardiac catheterization in am COPD -No acute exacerbation -PRN duonebs Disposition And appears quite deconditioned Request physical therapy evaluation to assess his disposition to home versus rehabilitation Objective HEENT normocephalic pupils are round reactive to light throat is clear Neck supple no significant adenopathy no JVD Lungs diminished breath sounds bilaterally no wheezing or rhonchi Heart S1-S2 regular rate and rhythm Abdomen soft nontender Extremities bilateral 1+ leg edema 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
[2018-07-06] MEDS: FOLVITE PO SCH (19:19)
[2018-07-06] MEDS: ALDACTONE PO SCH (19:20)
[2018-07-06] MEDS: COZAAR PO SCH (19:20)
[2018-07-06] MEDS: COREG PO SCH (21:38)
[2018-07-07] MEDS: NITRO-BID 2% TP SCH ×2 (06:52→12:45)
[2018-07-07 08:57] VITALS: BP 103/70
[2018-07-07] MEDS ORDERED: BABY ASPIRIN PO SCH (10:00)
--- NOTE | 2018-07-07 12:07 | Discharge Summary ---
Providers - Providers Date of Admission: 07/03/18 23:02 Attending physician: JARAD DANIELLE 07/04/18 12:56 Consult to Physician [CONS] Routine Comment: Consulting Provider: ANISHA SIFUENTES Physician Instructions: Reason For Exam: new alcoholic cardiomyopathy 07/06/18 11:27 Consult to Cardiac Rehabilitation [CONS] Routine Reason For Exam: Cardiac Rehab Evaluation 07/06/18 12:58 Physical Therapy Evaluation and Treat [CONS] Urgent Comment: Reason For Exam: deconditioning 07/07/18 10:03 Consult to Case Management [CONS] Urgent Services Needed at Discharge: Composite Worker Notified:: Isaac Was contact made?: Yes If yes, spoke with:: Isaac Time called:: 10:04 Primary care physician: HOSTAGE NEGOTIATOR Hospitalization Reason for admission: chest pain Condition: Fair Pertinent studies: Chest x-ray normal Stress test; normal myocardial perfusion scan without evidence of ischemia or prior infarction, Severe global hypokinesis EF 31% Heart Cath: Markedly dilated left ventricle with diffuse hypokinesis year 15-20% Mild coronary artery disease Hospital course: 52-year-old male patient was admitted to emergency room with chest pain evaluated symptomatically managed and subsequently evaluated by cardiology patient underwent stress test, myocardial perfusion scan without evidence of significant degree for ischemia or prior infarction here for 31% The patient was symptomatically managed, the stress test was negative echocardiogram is consistent with dilated cardiomyopathy with ejection fraction of 15-20% Patient later underwent left heart catheterization EF 15-20%, Mild stenosis 10- 20% mid lesionand RCA and mild coronary artery disease, Patient's medications were optimized today patient is comfortable in no new complaints Vital signs stable physical exam unremarkable, Clear the cardiology and pulmonary for discharge and follow-up per scheduled, Patient is stable at discharge Chest pain, rule out ACS -serial troponin levels negative, NST negative for acute ischemia with EF of 31% -Echo reported EF of 15-20% with diastolic dysfunction. Patent foramen ovale and moderate MR noted Heart cath, Mild stenosis of 10-20% lesions in RCA, medical management History of alcohol abuse with intoxication on admission -stable on alcohol withdrawal prophylaxis -Pt declined to stop drinking despite education New cardiomyopathy(systolic and diastolic dysfunction), with EF of 15-30% -likely 2/2 alcohol abuse -Patient did not tolerate beta ketan and ANDREINA inhibitor s/p cardiac catheterization in am, mild stenosis COPD -No acute exacerbation -PRN duonebs Disposition: DC-01 TO HOME OR SELFCARE Time spent for discharge: 32 min Core Measure Documentation - Palliative Care Palliative Care/ Comfort Measures: Not Applicable - Core Measures Any of the following diagnoses?: heart failure - Heart Failure Discharge Requirements ANDREINA/ARB for LVSD if EF <40%: Yes Beta ketan at discharge: Yes Exam - Constitutional Vitals: Temp Pulse Resp BP Pulse Ox 98.3 F 62 16 103/70 100 07/07/18 07:36 07/07/18 07:36 07/07/18 10:00 07/07/18 07:36 07/07/18 07:36 General appearance: Present: no acute distress, well-nourished - EENT Eyes: Present: PERRL, EOM intact - Neck Neck: Present: supple, normal ROM - Respiratory Respiratory effort: normal - Cardiovascular Rhythm: regular Heart Sounds: Present: S1 & S2 - Extremities Extremities: no ischemia, No edema - Abdominal General gastrointestinal: Present: soft, non-tender, non-distended, normal bowel sounds - Integumentary Integumentary: Present: clear, warm - Musculoskeletal Musculoskeletal: strength equal bilaterally, generalized weakness - Psychiatric Psychiatric: appropriate mood/affect, cooperative - Neurologic Neurologic: CNII-XII intact, moves all extremities Plan Activity: advance as tolerated, fall precautions Diet: low salt, other (cardiac diet) Special Instructions: smoking cessation Additional Instructions: Strongly advised to comply with medications and follow- up visits. Smoking cessation advised Follow up with: SARITA HENDERSON MD [Referring] - 3-5 Days ANISHA SIFUENTES MD [Staff Physician] - 07/13/18
[2018-07-07] MEDS: THERAGRAN Tab PO SCH (12:31)
[2018-07-07] MEDS: VITAMIN B-1 PO SCH (12:32)
[2018-07-07] MEDS: COREG PO SCH (12:32)
[2018-07-07] MEDS: FOLVITE PO SCH (12:32)
[2018-07-07] MEDS: COZAAR PO SCH (12:33)
[2018-07-07] MEDS: HEPARIN SUB-Q SCH (12:45)
[2018-07-07] MEDS: ALDACTONE PO SCH (12:45)
[2018-07-07] MEDS: LIBRIUM PO SCH (12:45)
== END 2018-07-07 13:40 | disposition home or self-care (01) | DRG 287 ==
LOC: ED 20:37 → 4A 23:02
PROVIDERS: ADMIT Internal Medicine; ATTEND Internal Medicine
PROC: 4A023N7 Measurement of Cardiac Sampling and Pressure, Left Heart, Percutaneous Approach (ICD-10-PCS; principal; 2018-07-06)
PROC: B2111ZZ Fluoroscopy of Multiple Coronary Arteries using Low Osmolar Contrast (ICD-10-PCS; 2018-07-06)
PROC: B2151ZZ Fluoroscopy of Left Heart using Low Osmolar Contrast (ICD-10-PCS; 2018-07-06)
DX: I25.10 Atherosclerotic heart disease of native coronary artery without angina pectoris (principal); I42.0 Dilated cardiomyopathy; R07.9 Chest pain, unspecified; J44.9 Chronic obstructive pulmonary disease, unspecified; F10.129 Alcohol abuse with intoxication, unspecified; F19.10 Other psychoactive substance abuse, uncomplicated; F12.90 Cannabis use, unspecified, uncomplicated; F17.210 Nicotine dependence, cigarettes, uncomplicated; G89.29 Other chronic pain; M54.9 Dorsalgia, unspecified
CPT/HCPCS: 36415; 71045; 78452; 80048; 80053; 80307; 80320; 82550; 82553; 82962; 83735; 83880; 84439; 84443; 84484; 85025; 85610; 85730; 90686; 93005; 93010; 93017; 93306; 93458; 99406; G0378; A9502; C1887; C1894; G0480; J1644; J2250; J2785; J3010; J3411; J3475; J7030; J7040; Q9967

== ENCOUNTER 2018-07-07 15:45 | Inpatient (IN) | payer SELFPAY ==
[2018-07-07] MEDS ORDERED: ASPIRIN PO ONE (16:20)
[2018-07-07] MEDS ORDERED: FOLVITE 1 MG, INFUVITE 10 ML in NACL 0.9% 1000 ML 1,000 ML IV ONE (16:30)
[2018-07-07] MEDS ORDERED: NACL 0.9% 1000 ML 1,000 ML IV ONE (16:30)
--- NOTE | 2018-07-07 16:39 | Emergency Department Report ---
ED General Adult HPI - General Chief complaint: Chest Pain Stated complaint: CHEST PAIN Time Seen by Provider: 07/07/18 16:08 Source: EMS (ems notes not available at time of chart dictation), RN notes reviewed, old records reviewed Mode of arrival: Stretcher Limitations: Altered Mental Status, Other (intoxication) - History of Present Illness Initial comments: this is a 52-year-old gentleman. The patient has a history of dilated cardiomyopathy, COPD, tobacco abuse, alcohol abuse, illicit drug abuse. Follows with the [facility]. Apparently, the patient was recently discharged from this hospital after an extensive cardiac evaluation. Apparently, the patient was found to be unresponsive outside the hospital today. It may have been a bar or restaurant. The patient is too intoxicated to tell. Prehospital EKG demonstrated a narrow complex very fast tachycardia. Apparently, the patient was shocked. The patient has no recollection of this event. The patient is currently in a normal sinus rhythm, without tachycardia. his initial blood pressure was in the 70s. The patient denied physical complaints, and was asking where his wallet was. No additional history is available at this point in time, as EMS documentation is not currently available. The patient was found to be very mildly hypothermic, and very intoxicated. The patient is currently placed on a 2013 for alcohol intoxication and inability to exhibit decision-making capacity. IV fluids were ordered. The patient's current blood pressure is in the high 90s. However, he has removed his IV. He will therefore be medicated with Haldol to permitacute resuscitation, and acquisition of emergent diagnostics. -: This afternoon Severity scale (0 -10): 0 Quality: other Consistency: other Improves with: other Worsens with: other - Related Data Previous Rx's Medication Instructions Recorded Last Taken Type Aspirin [Aspirin BABY CHEW TAB] 81 mg PO QDAY #60 tab.chew 07/07/18 Unknown Rx Carvedilol [Coreg] 3.125 mg PO BID #60 tablet 07/07/18 Unknown Rx Folic Acid [Folvite] 1 mg PO DAILY #30 tablet 07/07/18 Unknown Rx Furosemide [Lasix] 20 mg PO QDAY #30 tablet 07/07/18 Unknown Rx Losartan [Cozaar] 12.5 mg PO QDAY #30 tablet 07/07/18 Unknown Rx Spironolactone [Aldactone] 12.5 mg PO QDAY #30 tablet 07/07/18 Unknown Rx Thiamine [Vitamin B-1] 100 mg PO QDAY #30 tablet 07/07/18 Unknown Rx Allergies Allergy/AdvReac Type Severity Reaction Status Date / Time Penicillins Allergy Unknown Verified 07/06/18 07:22 ED Review of Systems ROS: Stated complaint: CHEST PAIN Other details as noted in HPI Comment: Unobtainable due to pts medical conditions ED Past Medical Hx - Past Medical History Hx COPD: Yes (no home O2) Additional medical history: alcohol abuse - Surgical History Additional Surgical History: back surgery - Social History Smoking Status: Current Every Day Smoker - Medications Home Medications: Home Medications Medication Instructions Recorded Confirmed Last Taken Type Aspirin [Aspirin BABY CHEW TAB] 81 mg PO QDAY #60 tab.chew 07/07/18 Unknown Rx Carvedilol [Coreg] 3.125 mg PO BID #60 tablet 07/07/18 Unknown Rx Folic Acid [Folvite] 1 mg PO DAILY #30 tablet 07/07/18 Unknown Rx Furosemide [Lasix] 20 mg PO QDAY #30 tablet 07/07/18 Unknown Rx Losartan [Cozaar] 12.5 mg PO QDAY #30 tablet 07/07/18 Unknown Rx Spironolactone [Aldactone] 12.5 mg PO QDAY #30 tablet 07/07/18 Unknown Rx Thiamine [Vitamin B-1] 100 mg PO QDAY #30 tablet 07/07/18 Unknown Rx ED Physical Exam - General Limitations: Altered Mental Status General appearance: appears intoxicated - Head Head exam: Present: atraumatic, normocephalic - Eye Eye exam: Present: normal appearance, EOMI. Absent: nystagmus - ENT ENT exam: Present: normal exam, normal orophraynx, mucous membranes moist, normal external ear exam - Neck Neck exam: Present: normal inspection, full ROM. Absent: tenderness - Respiratory Respiratory exam: Present: normal lung sounds bilaterally, decreased breath sounds. Absent: respiratory distress - Cardiovascular Cardiovascular Exam: Present: regular rate, normal rhythm, normal heart sounds. Absent: bradycardia, tachycardia, irregular rhythm, systolic murmur, diastolic murmur, rubs, gallop - GI/Abdominal GI/Abdominal exam: Present: soft, tenderness, other (left flank tenderness). Absent: distended, guarding, rebound, rigid, pulsatile mass - Rectal Rectal exam: Present: deferred - Extremities Exam Extremities exam: Present: normal inspection, full ROM, other (2+ pulses noted in the bilateral upper, lower extremities. Compartments soft. No long bony tenderness. The pelvis is stable.). Absent: pedal edema, joint swelling, calf tenderness - Back Exam Back exam: Present: normal inspection, full ROM. Absent: tenderness, CVA tenderness (R), paraspinal tenderness, vertebral tenderness - Neurological Exam Neurological exam: Present: altered (alert to name. Follows some commands. Alcohol intoxication.), other (detailed neurologic examination not possible secondary to intoxication) - Psychiatric Psychiatric exam: Present: anxious - Skin Skin exam: Present: warm, dry, intact, normal color. Absent: rash ED Course Vital Signs 07/07/18 07/07/18 07/07/18 16:06 16:15 16:22 Temperature 98.1 F Pulse Rate 80 80 Respiratory 20 18 Rate Blood Pressure 87/29 Blood Pressure 76/50 [Right] O2 Sat by Pulse 99 100 Oximetry 07/07/18 07/07/18 07/07/18 16:31 16:45 16:47 Temperature 96.1 F L Pulse Rate 79 73 Respiratory 19 17 Rate Blood Pressure 76/50 76/50 Blood Pressure [Right] O2 Sat by Pulse 100 Oximetry 07/07/18 07/07/18 07/07/18 17:01 17:15 17:31 Temperature Pulse Rate 71 Respiratory 18 Rate Blood Pressure 108/71 99/70 95/65 Blood Pressure [Right] O2 Sat by Pulse Oximetry 07/07/18 17:45 Temperature Pulse Rate Respiratory Rate Blood Pressure 99/70 Blood Pressure [Right] O2 Sat by Pulse 99 Oximetry - Reevaluation(s) Reevaluation #1: 07/07/18 19:53 Differential diagnosis, including well limited; intracranial injury, cervical spine injury, pneumonia, urinary tract infection, dehydration, vagal event, arrhythmia secondary to cardiomyopathy Assessment and plan: 52-year-old gentleman with known dilated cardiomyopathy, korin holt secondary to alcohol intoxication, with resultant unstable narrow complex tachycardia causing altered mental status and hypotension, now resolved, currently with active alcohol intoxication. CT scan has demonstrated possible bladder outlet obstruction. Lorenzo catheter is ordered. Patient resting comfortably. At one point in time, he discontinued his IV, and required Haldol for acquisition of diagnostics, a continued medical resuscitation. Given his cardiomyopathy, he may be a candidate for a defibrillator or a life vest. He will be admitted to the medical service for further evaluation. Reevaluation #2: 07/07/18 21:15 Dr Smith accepts to the medical service ED Medical Decision Making - Lab Data Result diagrams: 07/07/18 16:45 07/07/18 16:45 Vital Signs 07/07/18 07/07/18 07/07/18 16:06 16:15 16:22 Temperature 98.1 F Pulse Rate 80 80 Respiratory 20 18 Rate Blood Pressure 87/29 Blood Pressure 76/50 [Right] O2 Sat by Pulse 99 100 Oximetry 07/07/18 07/07/18 07/07/18 16:31 16:45 16:47 Temperature 96.1 F L Pulse Rate 79 73 Respiratory 19 17 Rate Blood Pressure 76/50 76/50 Blood Pressure [Right] O2 Sat by Pulse 100 Oximetry 07/07/18 07/07/18 07/07/18 17:01 17:15 17:31 Temperature Pulse Rate 71 Respiratory 18 Rate Blood Pressure 108/71 99/70 95/65 Blood Pressure [Right] O2 Sat by Pulse Oximetry 07/07/18 17:45 Temperature Pulse Rate Respiratory Rate Blood Pressure 99/70 Blood Pressure [Right] O2 Sat by Pulse 99 Oximetry Lab Results 07/07/18 07/07/18 07/07/18 Range/Units 16:45 16:45 16:45 WBC 4.9 (4.5-11.0) K/mm3 RBC 3.54 L (3.65-5.03) M/mm3 Hgb 12.1 (11.8-15.2) gm/dl Hct 35.6 (35.5-45.6) % MCV 101 H (84-94) fl MCH 34 H (28-32) pg MCHC 34 (32-34) % RDW 14.2 (13.2-15.2) % Plt Count 149 (140-440) K/mm3 Lymph % (Auto) 22.4 (13.4-35.0) % Webb % (Auto) 10.1 H (0.0-7.3) % Eos % (Auto) 1.2 (0.0-4.3) % Baso % (Auto) 0.5 (0.0-1.8) % Lymph # 1.1 L (1.2-5.4) K/mm3 Webb # 0.5 (0.0-0.8) K/mm3 Eos # 0.1 (0.0-0.4) K/mm3 Baso # 0.0 (0.0-0.1) K/mm3 Seg Neutrophils % 65.8 (40.0-70.0) % Seg Neutrophils # 3.3 (1.8-7.7) K/mm3 Sodium 139 (137-145) mmol/L Potassium 3.5 L (3.6-5.0) mmol/L Chloride 101.0 (98-107) mmol/L Carbon Dioxide 25 (22-30) mmol/L Anion Gap 17 mmol/L BUN 11 (9-20) mg/dL Creatinine 0.7 L (0.8-1.5) mg/dL Estimated GFR > 60 ml/min BUN/Creatinine Ratio 16 % Glucose 87 (75-100) mg/dL Lactic Acid (0.7-2.0) mmol/L Calcium 8.9 (8.4-10.2) mg/dL Magnesium 1.70 (1.7-2.3) mg/dL Total Bilirubin 0.30 (0.1-1.2) mg/dL AST 99 H (5-40) units/L ALT 39 (7-56) units/L Alkaline Phosphatase 83 (35-129) units/L Ammonia (25-60) umol/L Troponin T < 0.010 (0.00-0.029) ng/mL Total Protein 6.3 (6.3-8.2) g/dL Albumin 3.9 (3.9-5) g/dL Albumin/Globulin Ratio 1.6 % Lipase 39 (13-60) units/L TSH (0.270-4.200) mlU/mL Salicylates (2.8-20.0) mg/dL Acetaminophen (10.0-30.0) ug/mL Plasma/Serum Alcohol (0-0.07) % 07/07/18 07/07/18 07/07/18 Range/Units 16:45 16:45 16:45 WBC (4.5-11.0) K/mm3 RBC (3.65-5.03) M/mm3 Hgb (11.8-15.2) gm/dl Hct (35.5-45.6) % MCV (84-94) fl MCH (28-32) pg MCHC (32-34) % RDW (13.2-15.2) % Plt Count (140-440) K/mm3 Lymph % (Auto) (13.4-35.0) % Webb % (Auto) (0.0-7.3) % Eos % (Auto) (0.0-4.3) % Baso % (Auto) (0.0-1.8) % Lymph # (1.2-5.4) K/mm3 Webb # (0.0-0.8) K/mm3 Eos # (0.0-0.4) K/mm3 Baso # (0.0-0.1) K/mm3 Seg Neutrophils % (40.0-70.0) % Seg Neutrophils # (1.8-7.7) K/mm3 Sodium (137-145) mmol/L Potassium (3.6-5.0) mmol/L Chloride (98-107) mmol/L Carbon Dioxide (22-30) mmol/L Anion Gap mmol/L BUN (9-20) mg/dL Creatinine (0.8-1.5) mg/dL Estimated GFR ml/min BUN/Creatinine Ratio % Glucose (75-100) mg/dL Lactic Acid 1.60 (0.7-2.0) mmol/L Calcium (8.4-10.2) mg/dL Magnesium (1.7-2.3) mg/dL Total Bilirubin (0.1-1.2) mg/dL AST (5-40) units/L ALT (7-56) units/L Alkaline Phosphatase (35-129) units/L Ammonia 37.0 (25-60) umol/L Troponin T (0.00-0.029) ng/mL Total Protein (6.3-8.2) g/dL Albumin (3.9-5) g/dL Albumin/Globulin Ratio % Lipase (13-60) units/L TSH 1.740 (0.270-4.200) mlU/mL Salicylates (2.8-20.0) mg/dL Acetaminophen (10.0-30.0) ug/mL Plasma/Serum Alcohol (0-0.07) % 07/07/18 07/07/18 07/07/18 Range/Units 16:45 16:45 16:45 WBC (4.5-11.0) K/mm3 RBC (3.65-5.03) M/mm3 Hgb (11.8-15.2) gm/dl Hct (35.5-45.6) % MCV (84-94) fl MCH (28-32) pg MCHC (32-34) % RDW (13.2-15.2) % Plt Count (140-440) K/mm3 Lymph % (Auto) (13.4-35.0) % Webb % (Auto) (0.0-7.3) % Eos % (Auto) (0.0-4.3) % Baso % (Auto) (0.0-1.8) % Lymph # (1.2-5.4) K/mm3 Webb # (0.0-0.8) K/mm3 Eos # (0.0-0.4) K/mm3 Baso # (0.0-0.1) K/mm3 Seg Neutrophils % (40.0-70.0) % Seg Neutrophils # (1.8-7.7) K/mm3 Sodium (137-145) mmol/L Potassium (3.6-5.0) mmol/L Chloride (98-107) mmol/L Carbon Dioxide (22-30) mmol/L Anion Gap mmol/L BUN (9-20) mg/dL Creatinine (0.8-1.5) mg/dL Estimated GFR ml/min BUN/Creatinine Ratio % Glucose (75-100) mg/dL Lactic Acid (0.7-2.0) mmol/L Calcium (8.4-10.2) mg/dL Magnesium (1.7-2.3) mg/dL Total Bilirubin (0.1-1.2) mg/dL AST (5-40) units/L ALT (7-56) units/L Alkaline Phosphatase (35-129) units/L Ammonia (25-60) umol/L Troponin T (0.00-0.029) ng/mL Total Protein (6.3-8.2) g/dL Albumin (3.9-5) g/dL Albumin/Globulin Ratio % Lipase (13-60) units/L TSH (0.270-4.200) mlU/mL Salicylates < 0.3 L (2.8-20.0) mg/dL Acetaminophen < 5.0 L (10.0-30.0) ug/mL Plasma/Serum Alcohol 0.27 H (0-0.07) % - EKG Data -: EKG Interpreted by [place] EKG shows normal: sinus rhythm Rate: normal - EKG Data 07/07/18 18:17 Sinus, 79 bpm, left axis deviation, QTC prolonged, left anterior fascicular block, atrial enlargement, portal and left ventricular hypertrophy, not consistent with ST elevation myocardial infarction. - Radiology Data Radiology results: pending, report reviewed, image reviewed Referring Physician: ALEJANDRO BOWERS Patient Name: DARLENE MAC Date of : 1965 Sex: Male Report Date: 2018-07-07 Report Status: Finalized Findings [facility] [address] [place] [address] Cat Scan Report Signed Patient: DARLENE MAC MR#: [id number] : 1965 Acct:[id number] Age/Sex: 52 / M ADM Date: 07/07/18 Loc: ED Attending Dr: Ordering Physician: ALEJANDRO BOWERS MD Date of Service: 07/07/18 Procedure(s): CT abdomen pelvis wo con Accession Number(s): [id number] cc: ALEJANDRO BOWERS MD FINAL REPORT EXAM: CT ABDOMEN PELVIS WO CON HISTORY: AMS ETOH hx of recent cardioversion abd pain TECHNIQUE: Standard unenhanced CT of the abdomen and pelvis. Coronal and sagittal reconstruction was also performed. PRIORS: None. FINDINGS: The urinary bladder is overly distended doubt both renal collecting systems are also distended without evidence for obstructing calculi. Findings suggest bladder outlet obstruction. The prostate gland is normal in caliber measuring 3.6 x 3.0 cm. However, there is a calcification within the central aspect of the prostate measuring 2.9 mm. This could be a recently passed calculus in the prostatic urethra. Within the abdomen, the liver is slightly small in size and has lobulated contour. Findings suggest underlying cirrhosis. The spleen, pancreas, gallbladder, adrenal glands, and kidneys are unremarkable. No evidence for retroperitoneal or pelvic lymphadenopathy is seen. The bowel loops have normal caliber. No soft tissue mass, fluid collection, inflammatory change, or free air is seen within the abdomen or pelvis. The appendix is normal. Moderate stool is present throughout the colon. Within the pelvis, the bladder is unremarkable. The prostate is normal. No evidence for mass or lymphadenopathy is seen in the pelvis. Sigmoid diverticulosis is noted. A few other diverticuli are scattered throughout the descending colon. Images through the upper abdomen include the lung bases which are expanded and clear. Bony structures show mild disc space narrowing L5-S1. IMPRESSION: 1. There is distention of the bladder in both renal collecting systems suggesting bladder outlet obstruction. Prostate is normal in caliber. There is a small calcification in the central midline prostate which could represent a recently passed calculus located in the prostatic urethra. 2. Liver is slightly small in size with a lobulated contour suggesting cirrhosis 3. Diverticulosis of the sigmoid colon. Transcribed By: [facility] Dictated By: EDILSON OLIVA MD Electronically Authenticated By: EDILSON OLIVA MD Signed Date/Time: 07/07/181940 DD/ 39 TD/TT: 07/07/181939 ct head, c spine xr chest negative for acute disease Critical care attestation.: If time is entered above; I have spent that time in minutes in the direct care of this critically ill patient, excluding procedure time. ED Disposition Clinical Impression: Alcohol intoxication, Nonischemic dilated cardiomyopathy, Narrow complex tachycardia, History of hypotension Disposition: OP ADMIT IP TO THIS HOSP Is pt being admited?: Yes Condition: Fair Referrals: SARITA HENDERSON MD [Primary Care Provider] - 3-5 Days
[2018-07-07 17:25] LABS: Basophils % (Auto) 0.5 % (0.0-1.8); Eosinophils # (Auto) 0.1 K/mm3 (0.0-0.4); Eosinophils % (Auto) 1.2 % (0.0-4.3); Hematocrit 35.6 % (35.5-45.6); Hemoglobin 12.1 gm/dl (11.8-15.2); Lymphocytes # (Auto) 1.1 K/mm3 (1.2-5.4); Lymphocytes % (Auto) 22.4 % (13.4-35.0); Mean Corpuscular HGB Conc 34 % (32-34); Mean Corpuscular Volume 101 fl (84-94); Monocytes # (Auto) 0.5 K/mm3 (0.0-0.8); Monocytes % (Auto) 10.1 % (0.0-7.3); Platelet Count 149 K/mm3 (140-440); Red Blood Count 3.54 M/mm3 (3.65-5.03); Red Cell Distribution Width 14.2 % (13.2-15.2)
[2018-07-07 17:43] LABS: Alanine Aminotransferase 39 units/L (7-56); Albumin 3.9 g/dL (3.9-5); BUN/Creatinine Ratio 16; Blood Urea Nitrogen 11 mg/dL (9-20); Calcium 8.9 mg/dL (8.4-10.2); Hemolysis Index 5
[2018-07-07] MEDS: VITAMIN B-1 PO SCH (17:53)
[2018-07-07] MEDS ORDERED: HALDOL IM STA (18:09)
--- NOTE | 2018-07-07 18:10 | XRay Report ---
FINAL REPORT EXAM: XR CHEST 1V AP HISTORY: ams tachycardia TECHNIQUE: AP portable view of the chest PRIORS: CXR 07/03/2018 FINDINGS: Lines, tubes, and devices: N/A Lungs and pleura: Trachea is normal in position. Linear markings in the left midlung zone are likely atelectasis. Lungs are otherwise clear of infiltrate, pleural effusion, vascular congestion, or pneum othorax. No change. Cardiomediastinal silhouette: Cardiac silhouette is prominent given the AP projection. Other: Bony structures are intact. IMPRESSION: Mild linear atelectasis in the left midlung zone. Cardiac silhouette is prominent.
--- NOTE | 2018-07-07 19:14 | Cat Scan Report ---
FINAL REPORT EXAM: CT HEAD/BRAIN WO CON HISTORY: AMS ETOH hx of recent cardioversion TECHNIQUE: Standard unenhanced CT of the head at 5.0 millimeter axial increments. PRIORS: CT head 06/26/2018 FINDINGS: The ventricular system is normal in size and configuration. 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 Mild atrophy of the cerebellum and cerebrum is noted, stab le. There is no evidence for mass lesion, mass effect, midline shift, acute intracranial hemorrhage, or a cute ischemia/ infarction. No evidence for acute skull fracture is seen. There is a small area of soft tissue swelling in the ri ght supraorbital region. Visualized paranasal sinuses demonstrate minimal mucosal thickening in the maxillary sinuses. IMPRESSION: Small area of soft tissue scalp swelling over the right supraorbital region. No acute intracranial pr ocess noted. Mild atrophy of the cerebellum and cerebral hemispheres is stable
--- NOTE | 2018-07-07 19:41 | Cat Scan Report ---
FINAL REPORT EXAM: CT ABDOMEN PELVIS WO CON HISTORY: AMS ETOH hx of recent cardioversion abd pain TECHNIQUE: Standard unenhanced CT of the abdomen and pelvis. Coronal and sagittal reconstruction was also performed. PRIORS: None. FINDINGS: The urinary bladder is overly distended doubt both renal collecting systems are also distended withou t evidence for obstructing calculi. Findings suggest bladder outlet obstruction. The prostate gland i s normal in caliber measuring 3.6 x 3.0 cm. However, there is a calcification within the central aspe ct of the prostate measuring 2.9 mm. This could be a recently passed calculus in the prostatic urethr a. Within the abdomen, the liver is slightly small in size and has lobulated contour. Findings suggest u nderlying cirrhosis. The spleen, pancreas, gallbladder, adrenal glands, and kidneys are unremarkable. No evidence for retr operitoneal or pelvic lymphadenopathy is seen. The bowel loops have normal caliber. No soft tissue m ass, fluid collection, inflammatory change, or free air is seen within the abdomen or pelvis. The abelardo endix is normal. Moderate stool is present throughout the colon. Within the pelvis, the bladder is unremarkable. The prostate is normal. No evidence for mass or lymph adenopathy is seen in the pelvis. Sigmoid diverticulosis is noted. A few other diverticuli are scatte red throughout the descending colon. Images through the upper abdomen include the lung bases which are expanded and clear. Bony structures show mild disc space narrowing L5-S1. IMPRESSION: 1. There is distention of the bladder in both renal collecting systems suggesting bladder outlet obst ruction. Prostate is normal in caliber. There is a small calcification in the central midline prostat e which could represent a recently passed calculus located in the prostatic urethra. 2. Liver is slightly small in size with a lobulated contour suggesting cirrhosis 3. Diverticulosis of the sigmoid colon.
--- NOTE | 2018-07-07 19:49 | Cat Scan Report ---
FINAL REPORT EXAM: CT CERVICAL SPINE WO CON HISTORY: AMS ETOH hx of recent cardioversion TECHNIQUE: Standard CT cervical spine obtained at 2.5 mm axial increments. Coronal and sagittal rec onstruction was also performed. PRIORS: None. FINDINGS: The vertebral bodies are intact. There is no evidence for acute fracture. There is no evidence for paravertebral soft tissue swelling. Alignment is maintained. Moderate disc space narrowing at C4-C5 is seen. There is posterior spurring at this level without sig nificant neural foraminal narrowing bilaterally. There is also small spur anteriorly along the inferi or margin of C4. IMPRESSION: No acute abnormality of the cervical spine. Moderate disc space narrowing at C4-C5.
[2018-07-07 22:02] LABS: Bilirubin,Urine NEG (Negative); Blood,Urine NEG (Negative); Color,Urine Straw (Yellow); Protein,Urine <15 mg/dL mg/dL (Negative); Urobilinogen,Urine < 2.0 mg/dL (<2.0)
[2018-07-07 22:06] LABS: RBC,Urine < 1.0 /HPF (0.0-6.0); WBC,Urine < 1.0 /HPF (0.0-6.0)
[2018-07-07] MEDS ORDERED: TYLENOL PO PRN (22:39)
[2018-07-07] MEDS ORDERED: SODIUM CHLORIDE FLUSH SYRINGE 10 ML IV PRN (22:39)
[2018-07-07] MEDS ORDERED: ZOFRAN IV PRN (22:39)
[2018-07-07] MEDS ORDERED: MORPHINE IV PRN (22:39)
[2018-07-07] MEDS ORDERED: PROVENTIL IH PRN (22:39)
--- NOTE | 2018-07-07 23:45 | History and Physical Report ---
History of Present Illness Date of examination: 07/07/18 Date of admission: 07/07/18 22:39 Chief complaint: Unresponsive per report History of present illness: Patient is a 52 year old male with history of known ischemic dilated cardiomyopathy who was brought to the ED by EMS on account of unresponsiveness. Patient could not provide any history of what happened. It was reported that he was found unresponsive outside the hospital today, may be in a bar or a restaurant. Per the ED doctor, the Pre-hospital EKG demonstrated a narrow complex tachycardia and apparently the patient was shocked. On arrival to the ED, his initial blood pressure was in the 70s. The patient denied physical complaints, and was asking where his wallet was. He was not cooperative during my history taking and no further history could be obtained from him. The patient was placed on a 2013 in the ED for alcohol intoxication and inability to exhibit decision-making capacity. Mental health consult has been placed. Past History Past Medical History: CAD, COPD, heart failure, other (polysubstance abuse(alcohol, tobacco and cocaine)) Past Surgical History: No surgical history Social history: smoking (every day smoker), alcohol abuse, other (cocaine abuse) Family history: no significant family history Medications and Allergies Allergies Allergy/AdvReac Type Severity Reaction Status Date / Time Penicillins Allergy Unknown Verified 07/06/18 07:22 Home Medications Medication Instructions Recorded Confirmed Last Taken Type Aspirin [Aspirin BABY CHEW TAB] 81 mg PO QDAY #60 tab.chew 07/07/18 Unknown Rx Carvedilol [Coreg] 3.125 mg PO BID #60 tablet 07/07/18 Unknown Rx Folic Acid [Folvite] 1 mg PO DAILY #30 tablet 07/07/18 Unknown Rx Furosemide [Lasix] 20 mg PO QDAY #30 tablet 07/07/18 Unknown Rx Losartan [Cozaar] 12.5 mg PO QDAY #30 tablet 07/07/18 Unknown Rx Spironolactone [Aldactone] 12.5 mg PO QDAY #30 tablet 07/07/18 Unknown Rx Thiamine [Vitamin B-1] 100 mg PO QDAY #30 tablet 07/07/18 Unknown Rx Active Meds: Active Medications Acetaminophen (Tylenol) 650 mg PO Q4H PRN PRN Reason: Pain MILD(1-3)/Fever >100.5/CAMPOS Albuterol (Proventil) 2.5 mg IH Q4HRT PRN PRN Reason: Shortness Of Breath Docusate Sodium (Colace) 100 mg PO BID [facility] Enoxaparin Sodium (Lovenox) 40 mg SUB-Q QDAY [facility] Morphine Sulfate (Morphine) 2 mg IV Q4H PRN PRN Reason: Pain, Moderate (4-6) Ondansetron HCl (Zofran) 4 mg IV Q8H PRN PRN Reason: Nausea And Vomiting Potassium Chloride (K-Dur) 40 meq PO DAILY [facility] Stop: 07/09/18 22:42 Sodium Chloride (Sodium Chloride Flush Syringe 10 Ml) 10 ml IV BID [facility] Sodium Chloride (Sodium Chloride Flush Syringe 10 Ml) 10 ml IV PRN PRN PRN Reason: LINE FLUSH Thiamine HCl (Vitamin B-1) 100 mg PO QDAY [facility] Last Admin: 07/07/18 17:53 Dose: 100 mg Documented by: Review of Systems ROS unobtainable: due to mental status (patient refuses to answer questions) Exam - Constitutional Vitals: Temp Pulse Resp BP Pulse Ox 96.1 F L 62 16 106/72 98 07/07/18 16:47 07/07/18 22:31 07/07/18 22:31 07/07/18 22:31 07/07/18 21:30 General appearance: Present: no acute distress - EENT Eyes: Present: PERRL, EOM intact ENT: hearing intact, clear oral mucosa - Neck Neck: Present: supple, normal ROM - Respiratory Respiratory effort: normal Respiratory: bilateral: CTA - Cardiovascular Rhythm: regular Heart Sounds: Present: S1 & S2. Absent: rub, click - Extremities Extremities: No edema Peripheral Pulses: within normal limits - Abdominal General gastrointestinal: Present: soft, non-tender, non-distended, normal bowel sounds Male genitourinary: Present: deferred - Integumentary Integumentary: Present: clear, warm, dry - Musculoskeletal Musculoskeletal: gait normal, strength equal bilaterally - Psychiatric Psychiatric: appropriate mood/affect, intact judgment & insight - Neurologic Neurologic: CNII-XII intact, moves all extremities Results - Labs CBC & Chem 7: 07/07/18 16:45 07/07/18 16:45 Labs: Laboratory Last Values WBC 4.9 K/mm3 (4.5-11.0) 07/07/18 16:45 RBC 3.54 M/mm3 (3.65-5.03) L 07/07/18 16:45 Hgb 12.1 gm/dl (11.8-15.2) 07/07/18 16:45 Hct 35.6 % (35.5-45.6) 07/07/18 16:45 MCV 101 fl (84-94) H 07/07/18 16:45 MCH 34 pg (28-32) H 07/07/18 16:45 MCHC 34 % (32-34) 07/07/18 16:45 RDW 14.2 % (13.2-15.2) 07/07/18 16:45 Plt Count 149 K/mm3 (140-440) 07/07/18 16:45 Lymph % (Auto) 22.4 % (13.4-35.0) 07/07/18 16:45 Becker % (Auto) 10.1 % (0.0-7.3) H 07/07/18 16:45 Eos % (Auto) 1.2 % (0.0-4.3) 07/07/18 16:45 Baso % (Auto) 0.5 % (0.0-1.8) 07/07/18 16:45 Lymph # 1.1 K/mm3 (1.2-5.4) L 07/07/18 16:45 Becker # 0.5 K/mm3 (0.0-0.8) 07/07/18 16:45 Eos # 0.1 K/mm3 (0.0-0.4) 07/07/18 16:45 Baso # 0.0 K/mm3 (0.0-0.1) 07/07/18 16:45 Seg Neutrophils % 65.8 % (40.0-70.0) 07/07/18 16:45 Seg Neutrophils # 3.3 K/mm3 (1.8-7.7) 07/07/18 16:45 Sodium 139 mmol/L (137-145) 07/07/18 16:45 Potassium 3.5 mmol/L (3.6-5.0) L 07/07/18 16:45 Chloride 101.0 mmol/L (98-107) 07/07/18 16:45 Carbon Dioxide 25 mmol/L (22-30) 07/07/18 16:45 Anion Gap 17 mmol/L 07/07/18 16:45 BUN 11 mg/dL (9-20) 07/07/18 16:45 Creatinine 0.7 mg/dL (0.8-1.5) L 07/07/18 16:45 Estimated GFR > 60 ml/min 07/07/18 16:45 BUN/Creatinine Ratio 16 % 07/07/18 16:45 Glucose 87 mg/dL (75-100) 07/07/18 16:45 Lactic Acid 1.60 mmol/L (0.7-2.0) 07/07/18 16:45 Calcium 8.9 mg/dL (8.4-10.2) 07/07/18 16:45 Magnesium 1.70 mg/dL (1.7-2.3) 07/07/18 16:45 Total Bilirubin 0.30 mg/dL (0.1-1.2) 07/07/18 16:45 AST 99 units/L (5-40) H 07/07/18 16:45 ALT 39 units/L (7-56) 07/07/18 16:45 Alkaline Phosphatase 83 units/L (35-129) 07/07/18 16:45 Ammonia 37.0 umol/L (25-60) 07/07/18 16:45 Troponin T < 0.010 ng/mL (0.00-0.029) 07/07/18 22:44 Total Protein 6.3 g/dL (6.3-8.2) 07/07/18 16:45 Albumin 3.9 g/dL (3.9-5) 07/07/18 16:45 Albumin/Globulin Ratio 1.6 % 07/07/18 16:45 Lipase 39 units/L (13-60) 07/07/18 16:45 TSH 1.740 mlU/mL (0.270-4.200) 07/07/18 16:45 Urine Color Straw (Yellow) 07/07/18 Unknown Urine Turbidity Clear (Clear) 07/07/18 Unknown Urine pH 6.0 (5.0-7.0) 07/07/18 Unknown Ur Specific Bernard 1.001 (1.003-1.030) L 07/07/18 Unknown Urine Protein <15 mg/dl mg/dL (Negative) 07/07/18 Unknown Urine Glucose (UA) Neg mg/dL (Negative) 07/07/18 Unknown Urine Ketones Neg mg/dL (Negative) 07/07/18 Unknown Urine Blood Neg (Negative) 07/07/18 Unknown Urine Nitrite Neg (Negative) 07/07/18 Unknown Urine Bilirubin Neg (Negative) 07/07/18 Unknown Urine Urobilinogen < 2.0 mg/dL (<2.0) 07/07/18 Unknown Ur Leukocyte Esterase Neg (Negative) 07/07/18 Unknown Urine WBC (Auto) < 1.0 /HPF (0.0-6.0) 07/07/18 Unknown Urine RBC (Auto) < 1.0 /HPF (0.0-6.0) 07/07/18 Unknown Salicylates < 0.3 mg/dL (2.8-20.0) L 07/07/18 16:45 Acetaminophen < 5.0 ug/mL (10.0-30.0) L 07/07/18 16:45 Plasma/Serum Alcohol 0.27 % (0-0.07) H 07/07/18 16:45 Assessment and Plan Assessment and plan: Hypotension -Blood pressure responded to IV fluid, will monitor Outside hospital arrhythmia -Currently stable -We'll continue serial troponin level monitoring -Patient will be monitored on telemetry Suspected bladder outlet obstruction per imaging -Monitor urinary output 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
[2018-07-08] MEDS: K-DUR PO SCH ×2 (00:16→09:45)
[2018-07-08 04:58] LABS: BUN/Creatinine Ratio 15; Blood Urea Nitrogen 9 mg/dL (9-20); Calcium 8.3 mg/dL (8.4-10.2); Hemolysis Index 3
--- NOTE | 2018-07-08 09:06 | Progress Note ---
Assessment and Plan Assessment and plan: --Hypotension Blood pressure responded to IV fluid, will monitor --Outside hospital arrhythmia/SVT Currently stable We'll continue serial troponin level monitoring Patient will be monitored on telemetry --Metabolic encephalopathy/alcoholic intoxication CT head without contrast; soft tissue swelling no acute abnormality --Suspected bladder outlet obstruction per imaging CT abdomen and pelvis; diverticulosis sigmoid colon, cirrhosis of liver Distention of the bladder in both renal collecting system suggesting bilateral outlet obstruction, prostate normal in caliber small calcification present in the midline prostate represents recently passed calculus in the prostatic urethra --Chronic non-ischemic dilated cardiomyopathy with EF of 15-20% Resume home medications Patient may not be able to tolerate the aldactone and cozaar due to recurrent hypotension --COPD No acute exacerbation On PRN neb tx --History of polysubstance abuse (tobacco, cocaine and alcohol) Advised to quit alcohol and tobacco and cocaine use --Possible underlying psych disorder On 2012, psych evaluation --DVT prophylaxis with Lovenox Disposition: Patient will be placed on inpatient status pending further evaluation and treatment Time spent: 35 minutes History Interval history: Patient seen and examined no new episodes of arrhythmias Hospitalist Physical - Constitutional Vitals: Temp Pulse Resp BP Pulse Ox 98.3 F 73 20 116/75 99 07/08/18 07:54 07/08/18 07:54 07/08/18 07:54 07/08/18 07:54 07/08/18 07:54 General appearance: Present: no acute distress, well-nourished - EENT Eyes: Present: PERRL, EOM intact - Neck Neck: Present: supple, normal ROM - Respiratory Respiratory effort: normal Respiratory: bilateral: diminished, negative: rales, rhonchi, wheezing - Cardiovascular Rhythm: regular Heart Sounds: Present: S1 & S2 - Extremities Extremities: no ischemia, No edema - Abdominal General gastrointestinal: soft, non-tender, non-distended, normal bowel sounds - Integumentary Integumentary: Present: clear, warm - Psychiatric Psychiatric: appropriate mood/affect, cooperative - Neurologic Neurologic: moves all extremities Results - Labs CBC & Chem 7: 07/07/18 16:45 07/08/18 04:28 Labs: Laboratory Last Values WBC 4.9 K/mm3 (4.5-11.0) 07/07/18 16:45 RBC 3.54 M/mm3 (3.65-5.03) L 07/07/18 16:45 Hgb 12.1 gm/dl (11.8-15.2) 07/07/18 16:45 Hct 35.6 % (35.5-45.6) 07/07/18 16:45 MCV 101 fl (84-94) H 07/07/18 16:45 MCH 34 pg (28-32) H 07/07/18 16:45 MCHC 34 % (32-34) 07/07/18 16:45 RDW 14.2 % (13.2-15.2) 07/07/18 16:45 Plt Count 149 K/mm3 (140-440) 07/07/18 16:45 Lymph % (Auto) 22.4 % (13.4-35.0) 07/07/18 16:45 Villalba % (Auto) 10.1 % (0.0-7.3) H 07/07/18 16:45 Eos % (Auto) 1.2 % (0.0-4.3) 07/07/18 16:45 Baso % (Auto) 0.5 % (0.0-1.8) 07/07/18 16:45 Lymph # 1.1 K/mm3 (1.2-5.4) L 07/07/18 16:45 Villalba # 0.5 K/mm3 (0.0-0.8) 07/07/18 16:45 Eos # 0.1 K/mm3 (0.0-0.4) 07/07/18 16:45 Baso # 0.0 K/mm3 (0.0-0.1) 07/07/18 16:45 Seg Neutrophils % 65.8 % (40.0-70.0) 07/07/18 16:45 Seg Neutrophils # 3.3 K/mm3 (1.8-7.7) 07/07/18 16:45 Sodium 144 mmol/L (137-145) 07/08/18 04:28 Potassium 3.8 mmol/L (3.6-5.0) 07/08/18 04:28 Chloride 110.7 mmol/L (98-107) H 07/08/18 04:28 Carbon Dioxide 20 mmol/L (22-30) L 07/08/18 04:28 Anion Gap 17 mmol/L 02/27/19 04:28 BUN 9 mg/dL (9-20) 07/08/18 04:28 Creatinine 0.6 mg/dL (0.8-1.5) L 07/08/18 04:28 Estimated GFR > 60 ml/min 07/08/18 04:28 BUN/Creatinine Ratio 15 % 07/08/18 04:28 Glucose 99 mg/dL (75-100) 07/08/18 04:28 Lactic Acid 1.60 mmol/L (0.7-2.0) 07/07/18 16:45 Calcium 8.3 mg/dL (8.4-10.2) L 07/08/18 04:28 Magnesium 1.70 mg/dL (1.7-2.3) 07/07/18 16:45 Total Bilirubin 0.30 mg/dL (0.1-1.2) 07/07/18 16:45 AST 99 units/L (5-40) H 07/07/18 16:45 ALT 39 units/L (7-56) 07/07/18 16:45 Alkaline Phosphatase 83 units/L (35-129) 07/07/18 16:45 Ammonia 37.0 umol/L (25-60) 07/07/18 16:45 Troponin T < 0.010 ng/mL (0.00-0.029) 07/08/18 04:28 Total Protein 6.3 g/dL (6.3-8.2) 07/07/18 16:45 Albumin 3.9 g/dL (3.9-5) 07/07/18 16:45 Albumin/Globulin Ratio 1.6 % 07/07/18 16:45 Lipase 39 units/L (13-60) 07/07/18 16:45 TSH 1.740 mlU/mL (0.270-4.200) 07/07/18 16:45 Urine Color Straw (Yellow) 07/07/18 Unknown Urine Turbidity Clear (Clear) 07/07/18 Unknown Urine pH 6.0 (5.0-7.0) 07/07/18 Unknown Ur Specific Buchanan 1.001 (1.003-1.030) L 07/07/18 Unknown Urine Protein <15 mg/dl mg/dL (Negative) 07/07/18 Unknown Urine Glucose (UA) Neg mg/dL (Negative) 07/07/18 Unknown Urine Ketones Neg mg/dL (Negative) 07/07/18 Unknown Urine Blood Neg (Negative) 07/07/18 Unknown Urine Nitrite Neg (Negative) 07/07/18 Unknown Urine Bilirubin Neg (Negative) 07/07/18 Unknown Urine Urobilinogen < 2.0 mg/dL (<2.0) 07/07/18 Unknown Ur Leukocyte Esterase Neg (Negative) 07/07/18 Unknown Urine WBC (Auto) < 1.0 /HPF (0.0-6.0) 07/07/18 Unknown Urine RBC (Auto) < 1.0 /HPF (0.0-6.0) 07/07/18 Unknown Salicylates < 0.3 mg/dL (2.8-20.0) L 07/07/18 16:45 Acetaminophen < 5.0 ug/mL (10.0-30.0) L 07/07/18 16:45 Plasma/Serum Alcohol 0.27 % (0-0.07) H 07/07/18 16:45
[2018-07-08] MEDS: LOVENOX SUB-Q SCH (09:45)
[2018-07-08] MEDS: VITAMIN B-1 PO SCH (09:46)
[2018-07-08] MEDS: COLACE PO SCH ×2 (09:46→22:02)
[2018-07-08] MEDS: SODIUM CHLORIDE FLUSH SYRINGE 10 ML IV SCH ×2 (09:46→22:02)
--- NOTE | 2018-07-08 12:58 | Consultation ---
History of Present Illness Consult date: 07/08/18 Requesting physician: JARAD DANIELLE Consult reason: other (svt) History of present illness: The pt is a 52 YO male with a past medical history of NICMP, ETOH abuse, tobacco use, polysubstance use. He was seen by our practice for the first time during recent hospitalization. He presented to [facility] on 07/03 with c/o chest pain and palpitations and alcohol intoxication and was subsequently found to have dilated CMP. He underwent LHC on 07/06 which showed very mild CAD, EF 15-20%, markedly dilated LV with severe diffuse hypokinesis. He was discharged yesterday. He states that he was standing at the bus stop yesterday and after he finished drinking a bottle of vodka, he developed palpitations. EMS noted pt to be in SVT with HR 200s and per the strips provided, synchronized cardioversion x 1 was performed with conversion to apparent AFlutter and then conversion to NSR upon arrival to ED. He was noted to be intoxicated upon arrival to ED and 1013 hold was initiated. On evaluation, pt denies any current cardiac complaints. He remains in SR. Past History Past Medical History: other (NICMP, polysubstance abuse(alcohol, tobacco and cocaine)) Past Surgical History: No surgical history Social history: smoking (every day smoker), alcohol abuse, other (cocaine abuse) Family history: no significant family history Medications and Allergies Allergies Allergy/AdvReac Type Severity Reaction Status Date / Time Penicillins Allergy Unknown Verified 07/06/18 07:22 Home Medications Medication Instructions Recorded Confirmed Last Taken Type Aspirin [Aspirin BABY CHEW TAB] 81 mg PO QDAY #60 tab.chew 07/07/18 Unknown Rx Carvedilol [Coreg] 3.125 mg PO BID #60 tablet 07/07/18 Unknown Rx Folic Acid [Folvite] 1 mg PO DAILY #30 tablet 07/07/18 Unknown Rx Furosemide [Lasix] 20 mg PO QDAY #30 tablet 07/07/18 Unknown Rx Losartan [Cozaar] 12.5 mg PO QDAY #30 tablet 07/07/18 Unknown Rx Spironolactone [Aldactone] 12.5 mg PO QDAY #30 tablet 07/07/18 Unknown Rx Thiamine [Vitamin B-1] 100 mg PO QDAY #30 tablet 07/07/18 Unknown Rx Active Meds: Active Medications Acetaminophen (Tylenol) 650 mg PO Q4H PRN PRN Reason: Pain MILD(1-3)/Fever >100.5/CAMPOS Albuterol (Proventil) 2.5 mg IH Q4HRT PRN PRN Reason: Shortness Of Breath Docusate Sodium (Colace) 100 mg PO BID [facility] Last Admin: 07/08/18 09:46 Dose: Not Given Documented by: Enoxaparin Sodium (Lovenox) 40 mg SUB-Q QDAY [facility] Last Admin: 07/08/18 09:45 Dose: 40 mg Documented by: Morphine Sulfate (Morphine) 2 mg IV Q4H PRN PRN Reason: Pain, Moderate (4-6) Ondansetron HCl (Zofran) 4 mg IV Q8H PRN PRN Reason: Nausea And Vomiting Potassium Chloride (K-Dur) 40 meq PO DAILY [facility] Stop: 07/09/18 22:42 Last Admin: 07/08/18 09:45 Dose: 40 meq Documented by: Sodium Chloride (Sodium Chloride Flush Syringe 10 Ml) 10 ml IV BID [facility] Last Admin: 07/08/18 09:46 Dose: 10 ml Documented by: Sodium Chloride (Sodium Chloride Flush Syringe 10 Ml) 10 ml IV PRN PRN PRN Reason: LINE FLUSH Thiamine HCl (Vitamin B-1) 100 mg PO QDAY [facility] Last Admin: 07/08/18 09:46 Dose: 100 mg Documented by: Review of Systems Constitutional: no weight loss, no weight gain, no fever, no chills, no sweats Ears, nose, mouth and throat: no ear pain, no nose pain, no sinus pressure, no sinus pain Cardiovascular: palpitations, rapid/irregular heart beat, no chest pain, no orthopnea, no edema, no syncope, no lightheadedness, no shortness of breath, no dyspnea on exertion, no high blood pressure Respiratory: no cough, no shortness of breath, no dyspnea on exertion, no congestion, no wheezing, no pain on inspiration Gastrointestinal: no abdominal pain, no nausea, no vomiting, no diarrhea, no constipation, no change in bowel habits Genitourinary Male: no dysuria, no hematuria, no flank pain, no discharge, no urinary frequency, no urinary hesitancy Musculoskeletal: no neck stiffness, no neck pain, no shooting arm pain, no arm numbness/tingling, no low back pain, no shooting leg pain Integumentary: no rash, no pruritis, no redness, no sores, no wounds Neurological: no head injury, no paralysis, no weakness, no parathesias, no numbness, no tingling, no seizures, no syncope Psychiatric: no anxiety Endocrine: no cold intolerance, no heat intolerance Hematologic/Lymphatic: no easy bruising, no easy bleeding Allergic/Immunologic: no urticaria, no wheezing Physical Examination Vital Signs Pulse Resp Pulse Ox 80 20 99 07/07/18 16:06 07/07/18 16:06 07/07/18 16:06 General appearance: no acute distress HEENT: Positive: PERRL, Normocephaly, Mucus Membranes Moist Neck: Positive: neck supple, trachea midline Cardiac: Positive: Reg Rate and Rhythm, S1/S2 Lungs: Positive: clear to auscultation Neuro: Positive: Grossly Intact Abdomen: Positive: Soft. Negative: Tender Skin: Negative: Rash, Wound Musculoskeletal: No Pain Extremities: Absent: edema Results 07/07/18 16:45 07/08/18 04:28 Cardiac Enzymes 07/07/18 Range/Units 16:45 AST 99 H (5-40) units/L CBC 07/07/18 Range/Units 16:45 WBC 4.9 (4.5-11.0) K/mm3 RBC 3.54 L (3.65-5.03) M/mm3 Hgb 12.1 (11.8-15.2) gm/dl Hct 35.6 (35.5-45.6) % Plt Count 149 (140-440) K/mm3 Lymph # 1.1 L (1.2-5.4) K/mm3 Banner # 0.5 (0.0-0.8) K/mm3 Eos # 0.1 (0.0-0.4) K/mm3 Baso # 0.0 (0.0-0.1) K/mm3 Comprehensive Metabolic Panel 07/07/18 07/08/18 Range/Units 16:45 04:28 Sodium 139 144 (137-145) mmol/L Potassium 3.5 L 3.8 (3.6-5.0) mmol/L Chloride 101.0 110.7 H (98-107) mmol/L Carbon Dioxide 25 20 L (22-30) mmol/L BUN 11 9 (9-20) mg/dL Creatinine 0.7 L 0.6 L (0.8-1.5) mg/dL Glucose 87 99 (75-100) mg/dL Calcium 8.9 8.3 L (8.4-10.2) mg/dL AST 99 H (5-40) units/L ALT 39 (7-56) units/L Alkaline Phosphatase 83 (35-129) units/L Total Protein 6.3 (6.3-8.2) g/dL Albumin 3.9 (3.9-5) g/dL - Imaging and Cardiology Echo: report reviewed (07/04/2018: EF 15-20%, abnormal diastolic function, patent foramen ovale, atrial septal aneurysm, mild AR, ,mod MR) Cardiac cath: report reviewed ( 07/06 which showed very mild CAD, EF 15-20%, markedly dilated LV with severe diffuse hypokinesis) EKG: report reviewed, image reviewed EKG interpretations - Telemetry EKG Rhythm: Sinus Rhythm - EKG Sinus rhythms and dysrhythmias: sinus rhythm Assessment and Plan Pt in SR. Cont present cardiac management. Once again, cessation of ETOH and polysubstance abuse strongly encouraged. Pt verbalizes understanding. The patient has been seen in conjunction with Dr. Angel who agrees with the assessment and plan of care. - Patient Problems (1) SVT (supraventricular tachycardia) Current Visit: Yes Status: Acute (2) Nonischemic dilated cardiomyopathy Current Visit: Yes Status: Chronic (3) Alcohol intoxication Current Visit: Yes Status: Acute (4) ETOH abuse Current Visit: Yes Status: Acute (5) Polysubstance abuse Current Visit: Yes Status: Chronic (6) Tobacco use Current Visit: Yes Status: Chronic
--- NOTE | 2018-07-08 14:32 | Consultation ---
History of Present Illness - Reason for Consult Consult date: 07/08/18 Reason for consult: Initial Psychiatric Evaluation - Chief Complaint Chief complaint: "I'm alright" - History of Present Psychiatric Illness Patient is a 52 year old male with history of known ischemic dilated cardiomyopathy who was brought to the ED by EMS on account of unresponsiveness. Patient could not provide any history of what happened. Psychiatry was consulted for unknown. reason. Patient verbalizes that psychiatry could've been consulted because he had a few drinks. Today the patient is anxious and irritable during the assessment. Patient has no past psychiatric history. He reports frequent alcohol consumption, 1 pint every 2 days. He reports appropriate appetite, energy, and sleep. He denies anhedonia, SI/HI's, A/VH's, and delusions. He denies current alcohol withdrawal symptoms. The following withdrawal symptoms are noted: anxiety, irritable, mild tremors, and poor concentration. Patient denies cravings to alcohol. Current Psychiatric Medications: Patient denies. Past Psychiatric History: no previous psychiatric diagnosis; no previous inpatient psychiatric hospitalizations; no previous suicide attempts; no outpatient psychiatrist. Past Psychiatric Medication Trials : Patient denies. History of Drug/Substance Abuse: Alcohol, 1 pint every 2 days, last drink 07-07-18, first drink- age 18. Denies substance abuse. Serum alcohol level 0.27. History of Trauma/Abuse: Patient denies sexual, physical, and mental abuse. History of Social Abuse: some college- highest level of education; no source of income; no children; limited support system- "friends";no pending legal issues. Family History of Psychiatric Illness/Substance: Patient denies. Medications and Allergies Allergies Allergy/AdvReac Type Severity Reaction Status Date / Time Penicillins Allergy Unknown Verified 07/06/18 07:22 Home Medications Medication Instructions Recorded Confirmed Last Taken Type Aspirin [Aspirin BABY CHEW TAB] 81 mg PO QDAY #60 tab.chew 07/07/18 Unknown Rx Carvedilol [Coreg] 3.125 mg PO BID #60 tablet 07/07/18 Unknown Rx Folic Acid [Folvite] 1 mg PO DAILY #30 tablet 07/07/18 Unknown Rx Furosemide [Lasix] 20 mg PO QDAY #30 tablet 07/07/18 Unknown Rx Losartan [Cozaar] 12.5 mg PO QDAY #30 tablet 07/07/18 Unknown Rx Spironolactone [Aldactone] 12.5 mg PO QDAY #30 tablet 07/07/18 Unknown Rx Thiamine [Vitamin B-1] 100 mg PO QDAY #30 tablet 07/07/18 Unknown Rx Active Meds: Active Medications Acetaminophen (Tylenol) 650 mg PO Q4H PRN PRN Reason: Pain MILD(1-3)/Fever >100.5/CAMPOS Albuterol (Proventil) 2.5 mg IH Q4HRT PRN PRN Reason: Shortness Of Breath Aspirin (Baby Aspirin) 81 mg PO QDAY [facility] Carvedilol (Coreg) 3.125 mg PO BID [facility] Docusate Sodium (Colace) 100 mg PO BID [facility] Last Admin: 07/08/18 09:46 Dose: Not Given Documented by: Enoxaparin Sodium (Lovenox) 40 mg SUB-Q QDAY [facility] Last Admin: 07/08/18 09:45 Dose: 40 mg Documented by: Furosemide (Lasix) 20 mg PO QDAY [facility] Losartan Potassium (Cozaar) 12.5 mg PO QDAY [facility] Morphine Sulfate (Morphine) 2 mg IV Q4H PRN PRN Reason: Pain, Moderate (4-6) Ondansetron HCl (Zofran) 4 mg IV Q8H PRN PRN Reason: Nausea And Vomiting Potassium Chloride (K-Dur) 40 meq PO DAILY [facility] Stop: 07/09/18 22:42 Last Admin: 07/08/18 09:45 Dose: 40 meq Documented by: Sodium Chloride (Sodium Chloride Flush Syringe 10 Ml) 10 ml IV BID [facility] Last Admin: 07/08/18 09:46 Dose: 10 ml Documented by: Sodium Chloride (Sodium Chloride Flush Syringe 10 Ml) 10 ml IV PRN PRN PRN Reason: LINE FLUSH Spironolactone (Aldactone) 12.5 mg PO QDAY [facility] Thiamine HCl (Vitamin B-1) 100 mg PO QDAY [facility] Last Admin: 07/08/18 09:46 Dose: 100 mg Documented by: Mental Status Exam - Vital signs Last Vital Signs Temp 98.3 F 07/08/18 07:54 Pulse 73 07/08/18 07:54 Resp 20 07/08/18 10:00 BP 116/75 07/08/18 07:54 Pulse Ox 96 07/08/18 10:00 - Exam Narrative exam: Mental Status Exam Appearance: anxious, irritable Behavior: regular eye contact Speech: regular rate and tone Mood: "aggravated" Affect: congruent to mood Thought Process: circumstantial Thought Content: denies SI/HI's, AVH's, and delusions Motor Activity: sitting up in bed Cognition: A/O x3 Insight: variable Judgment: fair Results Result Diagrams: 07/07/18 16:45 07/08/18 04:28 Abnormal lab results 07/07/18 07/07/18 07/07/18 Range/Units 16:45 16:45 16:45 RBC 3.54 L (3.65-5.03) M/mm3 MCV 101 H (84-94) fl MCH 34 H (28-32) pg [place] % (Auto) 10.1 H (0.0-7.3) % Lymph # 1.1 L (1.2-5.4) K/mm3 Potassium 3.5 L (3.6-5.0) mmol/L Chloride (98-107) mmol/L Carbon Dioxide (22-30) mmol/L Creatinine 0.7 L (0.8-1.5) mg/dL Calcium (8.4-10.2) mg/dL AST 99 H (5-40) units/L Ur Specific [place] (1.003-1.030) Salicylates < 0.3 L (2.8-20.0) mg/dL Acetaminophen (10.0-30.0) ug/mL Plasma/Serum Alcohol (0-0.07) % 07/07/18 07/07/18 07/07/18 Range/Units 16:45 16:45 Unknown RBC (3.65-5.03) M/mm3 MCV (84-94) fl MCH (28-32) pg [place] % (Auto) (0.0-7.3) % Lymph # (1.2-5.4) K/mm3 Potassium (3.6-5.0) mmol/L Chloride (98-107) mmol/L Carbon Dioxide (22-30) mmol/L Creatinine (0.8-1.5) mg/dL Calcium (8.4-10.2) mg/dL AST (5-40) units/L Ur Specific [place] 1.001 L (1.003-1.030) Salicylates (2.8-20.0) mg/dL Acetaminophen < 5.0 L (10.0-30.0) ug/mL Plasma/Serum Alcohol 0.27 H (0-0.07) % 07/08/18 Range/Units 04:28 RBC (3.65-5.03) M/mm3 MCV (84-94) fl MCH (28-32) pg [place] % (Auto) (0.0-7.3) % Lymph # (1.2-5.4) K/mm3 Potassium (3.6-5.0) mmol/L Chloride 110.7 H (98-107) mmol/L Carbon Dioxide 20 L (22-30) mmol/L Creatinine 0.6 L (0.8-1.5) mg/dL Calcium 8.3 L (8.4-10.2) mg/dL AST (5-40) units/L Ur Specific [place] (1.003-1.030) Salicylates (2.8-20.0) mg/dL Acetaminophen (10.0-30.0) ug/mL Plasma/Serum Alcohol (0-0.07) % All other labs normal. Assessment and Plan Assessment and plan: Impression: Alcohol Use Disorder, severe. Today the patient is anxious and irritable during the assessment. He denies SI/HI's, A/VH's, and delusions. The following withdrawal symptoms are noted: anxiety, irritable, mild tremors, and poor concentration. Recommendation/Plan: 1. Will reassess in [address] on [facility] protocol for alcohol withdrawal. 3. Attempt to gain collateral to determine proper disposition. Disposition: Once collateral information is gathered, proper dispo will be determined. Staffed with Dr. Maureen Paiz.
[2018-07-08] MEDS: COREG PO SCH (22:01)
[2018-07-09 05:12] VITALS: BP 110/72
[2018-07-09] MEDS: LOVENOX SUB-Q SCH (09:03)
[2018-07-09] MEDS: COLACE PO SCH (09:05)
[2018-07-09] MEDS: COREG PO SCH (09:05)
[2018-07-09] MEDS: K-DUR PO SCH (09:05)
[2018-07-09] MEDS: SODIUM CHLORIDE FLUSH SYRINGE 10 ML IV SCH (09:10)
[2018-07-09] MEDS: VITAMIN B-1 PO SCH (09:10)
--- NOTE | 2018-07-09 09:58 | Progress Note ---
Assessment and Plan Pt remains in SR. Cont present cardiac management. Once again, cessation of ETOH and polysubstance abuse strongly encouraged. Pt verbalizes understanding. Pt may discharge home from cardiology standpoint. Recommend follow up in our office with Dr. Jet Dorantes within 1-2 weeks of hospital discharge ([phone]). The patient has been seen in conjunction with Dr. Angel who agrees with the assessment and plan of care. - Patient Problems (1) SVT (supraventricular tachycardia) Current Visit: Yes Status: Acute (2) Nonischemic dilated cardiomyopathy Current Visit: Yes Status: Chronic (3) Alcohol intoxication Current Visit: Yes Status: Acute (4) ETOH abuse Current Visit: Yes Status: Acute (5) Polysubstance abuse Current Visit: Yes Status: Chronic (6) Tobacco use Current Visit: Yes Status: Chronic Subjective Date of service: 07/09/18 Principal diagnosis: svt Interval history: pt resting in bed, no current cardiac complaints. tele reviewed - in SR/SB overnight, no SVT noted overnight. Objective Last Vital Signs Temp 97.8 F 07/09/18 05:10 Pulse 50 L 07/09/18 09:05 Resp 17 07/09/18 05:10 BP 110/72 07/09/18 05:10 Pulse Ox 99 07/09/18 05:10 - Physical Examination General: No Apparent Distress HEENT: Positive: PERRL, Normocephaly, Mucus Membranes Moist Neck: Positive: neck supple, trachea midline Cardiac: Positive: Reg Rate and Rhythm, S1/S2 Lungs: Positive: clear to auscultation Neuro: Positive: Grossly Intact Abdomen: Positive: Soft. Negative: Tender Skin: Negative: Rash, Wound Musculoskeletal: No Pain Extremities: Absent: edema - Imaging and Cardiology EKG: report reviewed, image reviewed Echo: report reviewed (07/04/2018: EF 15-20%, abnormal diastolic function, patent foramen ovale, atrial septal aneurysm, mild AR, ,mod MR) Cardiac cath: report reviewed ( 07/06 which showed very mild CAD, EF 15-20%, markedly dilated LV with severe diffuse hypokinesis) - Telemetry EKG Rhythm: Sinus Rhythm - EKG Sinus rhythms and dysrhythmias: sinus rhythm
[2018-07-09] MEDS ORDERED: LASIX PO SCH (10:00)
[2018-07-09] MEDS ORDERED: ALDACTONE PO SCH (10:00)
[2018-07-09] MEDS ORDERED: BABY ASPIRIN PO SCH (10:00)
[2018-07-09] MEDS ORDERED: COZAAR PO SCH (10:00)
--- NOTE | 2018-07-09 12:09 | Progress Note ---
Subjective - Reason for Consult Consult date: 07/09/18 Reason for consult: Psychiatry Follow-up - Chief Complaint Chief complaint: "I do want to stop drinking" 52 year old male with history of known ischemic dilated cardiomyopathy who was brought to the ED by EMS on account of unresponsiveness. This patient has a hx of ETOH abuse. Today the patient is calm and cooperative during the assessment. Upon my arrival to the patient's room, he was shaving. He stated that he would like to stop drinking. He stated that he experienced sobriety for several years until he relapsed. He stated that he is and use the [place] for his medical resources. He denies being depressed when asked. He stated, "I like to drink period." He stated that he is willing to try rehab services again. He denies SI/HI's and AVH's. Mental Status Exam - Vital signs Last Vital Signs Temp 97.8 F 07/09/18 05:10 Pulse 50 L 07/09/18 09:05 Resp 17 07/09/18 05:10 BP 110/72 07/09/18 05:10 Pulse Ox 99 07/09/18 05:10 - Exam Narrative exam: MSE: Appearance: calm, cooperative Behavior: regular eye contact Speech: regular rate and tone Mood: "okay" Affect: congruent to mood Thought Process: linear Thought Content: denies SI/HI's and AVH's Motor Activity: sitting up in the bed Cognition: A/O x 3 Insight: appropriate Judgment: appropriate Assessment and Plan Impression: Alcohol Use Disorder. Today the patient is calm and cooperative during the assessment. No acute withdrawals noted (etoh). Recommendation/Plan: Discussed the importance to abstain from alcohol consumption (etoh). Psy sign off. Dispo: The patient can follow up with the [place] and or [facility] for rehab services. Will staff with Dr Robles.
--- NOTE | 2018-07-09 14:30 | Discharge Summary ---
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 Notified:: awaiting call back 07/08/18 11:10 Consult to Physician [CONS] Routine Comment: Consulting Provider: BHASKAR AMAYA Physician Instructions: Reason For Exam: CMP EF 15-20% /SVT [facility] Reason for admission: altered level of consciousness/cardiac arrhythmia Condition: Fair Pertinent studies: CT abdomen and pelvis; diverticulosis sigmoid colon, cirrhosis of liver Distention of the bladder in both renal collecting system suggesting bilateral outlet obstruction, prostate normal in caliber small calcification present in the midline prostate represents recently passed calculus in the prostatic urethra Hospital course: 52-year-old male patient with significant history of non-ischemic dilated cardiomyopathy with ejection fraction of 20% was recently discharged was admitted through emergency room with altered level of consciousness and narrow complex tachycardia requiring cardioversion. Patient was treated symptomatically managed, patient was noted to be hypotensive with cardiac arrhythmia, Patient was symptomatically managed managed with anti-failure medications and supportive care. He shouldn't also had possible bladder outlet obstruction and COPD history of polysubstance abuse, counseling on patient strongly advised to quit occasional drug, evaluated by psychiatric, medications optimized Today patient is comfortable in no new complaints, Vital signs stable, Physical examination unremarkable Patient advised to quit recreational drug use alcohol and tobacco use Advised to seek alcohol rehabilitation, psychiatric has cleared for discharge and follow with [facility] behavioral health services Patient is hemodynamically and clinically stable at discharge Discharge diagnosis: --Hypotension:Improved with IV fluids --Outside hospital arrhythmia/SVT; stable --Metabolic encephalopathy/alcoholic intoxication CT head without contrast; soft tissue swelling no acute abnormality --Suspected bladder outlet obstruction per imaging CT abdomen and pelvis; diverticulosis sigmoid colon, cirrhosis of liver Distention of the bladder in both renal collecting system suggesting bilateral outlet obstruction, prostate normal in caliber small calcification present in the midline prostate represents recently passed calculus in the prostatic urethra --Chronic non-ischemic dilated cardiomyopathy with EF of 15-20% Resume home medications Patient may not be able to tolerate the aldactone and cozaar due to recurrent hypotension --COPD; No acute exacerbation, On PRN neb tx --History of polysubstance abuse (tobacco, cocaine and alcohol) Advised to quit alcohol and tobacco and cocaine use --Possible underlying psych disorder, On 2012, psych evaluated --DVT prophylaxis with Lovenox Disposition: DC- TO HOME OR SELFCARE Time spent for discharge: 32 min Core Measure Documentation - Palliative Care Palliative Care/ Comfort Measures: Not Applicable - Core Measures Any of the following diagnoses?: heart failure - Heart Failure Discharge Requirements ANDREINA/ARB for LVSD if EF <40%: Yes Beta ketan at discharge: Yes Exam - Constitutional Vitals: Temp Pulse Resp BP Pulse Ox 97.8 F 50 L 17 110/72 99 07/09/18 05:10 07/09/18 09:05 07/09/18 05:10 07/09/18 05:10 07/09/18 05:10 General appearance: Present: no acute distress, well-nourished - EENT Eyes: Present: PERRL, EOM intact - Neck Neck: Present: supple, normal ROM - Respiratory Respiratory effort: normal Respiratory: bilateral: diminished, negative: rales, rhonchi, wheezing - Cardiovascular Rhythm: regular Heart Sounds: Present: S1 & S2 - Extremities Extremities: no ischemia, No edema - Abdominal General gastrointestinal: Present: soft, non-tender, non-distended, normal bowel sounds - Integumentary Integumentary: Present: clear, warm - Musculoskeletal Musculoskeletal: strength equal bilaterally - Psychiatric Psychiatric: appropriate mood/affect, cooperative - Neurologic Neurologic: CNII-XII intact, moves all extremities Plan Activity: advance as tolerated, fall precautions Diet: low salt Special Instructions: smoking cessation Additional Instructions: f/u [facility] in 3-4 days. Advised smoking cessation. Advised to quit alcohol intake. Advised to comply with medications, diet and follow-up visits Follow up with: SARITA HENDERSON MD [Primary Care Provider] - 3-5 Days ANISHA SIFUENTES MD [Staff Physician] - 14 Days ABNER SANCHEZ MD [Staff Physician] - 7 Days Prescriptions: Aspirin [Aspirin BABY CHEW TAB] 81 mg PO QDAY #30 tab.chew Carvedilol [Coreg] 3.125 mg PO BID #60 tablet Folic Acid [Folvite] 1 mg PO DAILY #30 tablet Furosemide [Lasix TAB] 20 mg PO QDAY #30 tablet Losartan [Cozaar] 12.5 mg PO QDAY #30 tablet Spironolactone [Aldactone] 12.5 mg PO QDAY #30 tablet Thiamine [Vitamin B-1] 100 mg PO QDAY #30 tablet
== END 2018-07-09 15:13 | disposition home or self-care (01) | DRG 308 ==
LOC: ED 15:45 → 3A 22:39
PROVIDERS: ADMIT Internal Medicine; ATTEND Internal Medicine
DX: I47.1 Supraventricular tachycardia (principal); G93.41 Metabolic encephalopathy; I42.0 Dilated cardiomyopathy; I95.9 Hypotension, unspecified; I25.10 Atherosclerotic heart disease of native coronary artery without angina pectoris; J44.9 Chronic obstructive pulmonary disease, unspecified; I50.9 Heart failure, unspecified; F14.10 Cocaine abuse, uncomplicated; F10.129 Alcohol abuse with intoxication, unspecified; F10.10 Alcohol abuse, uncomplicated; Y90.0 Blood alcohol level of less than 20 mg/100 ml; F17.200 Nicotine dependence, unspecified, uncomplicated; Z88.0 Allergy status to penicillin; Z79.82 Long term (current) use of aspirin; Z79.899 Other long term (current) drug therapy
CPT/HCPCS: 36415; 70450; 71045; 72125; 74176; 80048; 80053; 80320; 81001; 82140; 83690; 83735; 84443; 84484; 85025; 93005; 93010; 96361; 96365; 96372; G0378; G0480; J1630; J1650; J3411; J7030